=== PATIENT | female | born 1995 | race African-American/Black ===

== ENCOUNTER 2019-12-15 08:41 | Outpatient (REF) | payer BC, MEDICAID, SELFPAY ==
[2019-12-15 13:48] LABS: CT PCR NOT DETECTED (Not Detect.); NG PCR NOT DETECTED (Not Detect.)
[2019-12-21 18:17] LABS: HPV mRNA E6/E7 Not Detected (Not Detected)
== END 2019-12-15 08:42 | disposition home or self-care (01) ==
LOC: HO.LAB 08:41
PROVIDERS: PCP Internal Medicine; Referring Provider Internal Medicine; Visit Provider Obstetrics & Gynecology
DX: Z01.419 Encounter for gynecological examination (general) (routine) without abnormal findings (principal); R10.2 Pelvic and perineal pain
CPT/HCPCS: 81002; 81025; 87491; 87591; 87624; 88142

== ENCOUNTER → 2020-01-09 11:11 | Outpatient (BNVA) | payer MEDICAID, SELFPAY | PROVIDERS: Visit Provider Obstetrics & Gynecology | DX: Z76.89 Persons encountering health services in other specified circumstances (principal) ==

== ENCOUNTER 2020-01-25 16:11 | Outpatient (REF) | payer OTHER, SELFPAY ==
--- NOTE | 2020-01-25 16:18 | US_ITS ---
EXAMINATION: ULTRASOUND PELVIS. CLINICAL INFORMATION: Pelvic pain. COMPARISON: None TECHNIQUE: Transabdominal and transvaginal imaging of pelvis was performed. FINDINGS: The uterus is anteverted and anteflexed measuring 7.0 cm in length, 3.7 cm in AP and 4.1 cm in transverse dimension. The endometrial thickness is 0.7 cm. The uterus is homogeneous in echotexture. Small nabothian cysts seen in the cervix. The right ovary measures 3.0 x 2.5 x 2.5 cm and volume 9.8 mL. There are small follicles visualized. Previously right ovary measured 4.9 x 2.6 x 3.3 cm. Left ovary measures 2.6 x 2.1 x 2.5 cm and volume 9.9 mL. There is a small corpus luteal cyst measuring 1.5 x 1.5 x 1.6 cm. In addition there are small shotty follicles noted. There is no free fluid in cul-de-sac. US/US pelvic complete IMPRESSION: 1. Unremarkable uterus. 2. Small nabothian cysts seen in cervix. 3. Bilateral small ovarian follicles. 4. Corpus luteal cyst left ovary.
--- NOTE | 2020-01-25 16:18 | US_ITS ---
EXAMINATION: ULTRASOUND PELVIS. CLINICAL INFORMATION: Pelvic pain. COMPARISON: None TECHNIQUE: Transabdominal and transvaginal imaging of pelvis was performed. FINDINGS: The uterus is anteverted and anteflexed measuring 7.0 cm in length, 3.7 cm in AP and 4.1 cm in transverse dimension. The endometrial thickness is 0.7 cm. The uterus is homogeneous in echotexture. Small nabothian cysts seen in the cervix. The right ovary measures 3.0 x 2.5 x 2.5 cm and volume 9.8 mL. There are small follicles visualized. Previously right ovary measured 4.9 x 2.6 x 3.3 cm. Left ovary measures 2.6 x 2.1 x 2.5 cm and volume 9.9 mL. There is a small corpus luteal cyst measuring 1.5 x 1.5 x 1.6 cm. In addition there are small shotty follicles noted. There is no free fluid in cul-de-sac. US/US transvaginal IMPRESSION: 1. Unremarkable uterus. 2. Small nabothian cysts seen in cervix. 3. Bilateral small ovarian follicles. 4. Corpus luteal cyst left ovary.
== END 2020-01-25 16:12 | disposition home or self-care (01) ==
LOC: HO.US 16:11
PROVIDERS: PCP Internal Medicine; Visit Provider Obstetrics & Gynecology
DX: R10.2 Pelvic and perineal pain (principal)
CPT/HCPCS: 76830; 76856

== ENCOUNTER 2020-02-22 16:34 | Outpatient (REF) | payer OTHER, SELFPAY | END 2020-02-22 16:35 | disposition home or self-care (01) | LOC: HO.LAB 16:34 | PROVIDERS: Visit Provider Internal Medicine | DX: Z20.828 Contact with and (suspected) exposure to other viral communicable diseases (principal) | CPT/HCPCS: 36415; C9803; U0003 ==

== ENCOUNTER 2020-05-06 22:57 | Emergency (ER) | payer OTHER, SELFPAY ==
--- NOTE | ~2020-05-06 | XR_ITS ---
EXAMINATION: XR CHEST CLINICAL INFORMATION: Right-sided chest pressure. COMPARISON: Most recent chest radiograph dated 09/09/2017. TECHNIQUE: Frontal view of the chest was obtained. FINDINGS: The lungs are clear. The cardiomediastinal silhouette is normal in size. There is no pleural effusion or pneumothorax. No acute osseous abnormality. XR/XR chest 1V IMPRESSION: No acute cardiopulmonary findings.
[2020-05-06 23:36] VITALS: BP 113/67; PULSE 80; RESP 16; TEMP 36.8; O2SAT 98; BMI 24.0
--- NOTE | 2020-05-06 23:50 | PC.NURSE ---
UA obtained and sent. MD at bedside for primary eval.
--- NOTE | 2020-05-06 23:52 | ECG_ITS ---
Test Reason : CP Blood Pressure : / mmHG Vent. Rate : 058 BPM Atrial Rate : 058 BPM P-R Int : 132 ms QRS Dur : 086 ms QT Int : 394 ms P-R-T Axes : 042 061 050 degrees QTc Int : 386 ms Sinus bradycardia Otherwise normal ECG When compared with ECG of 09-SEP-2017 18:07, No significant change was found Referred By: Sally Fu Electronically Signed By:KEELY DE PAZ
--- NOTE | 2020-05-06 23:55 | ED_ITS ---
HPI - General Adult General Chief complaint: Abdominal Pain Stated complaint: ABD PAIN Time Seen by Provider: 05/06/20 23:22 Source: patient Mode of arrival: ambulatory Limitations: no limitations History of Present Illness HPI narrative: Patient comes emergency room complaining of suprapubic cramping and chest pressure. Patient states the chest pressure occurred at work for a few seconds on the right side and then resolved, no chest pressure at this time. Patient states that made her come to the emergency room specifically was because of the suprapubic cramping. Patient states she is due for her menstrual period. Patient states that this time she has brownish discharge. She does not suspect to be . Patient denies fever or chills, denies vomiting or diarrhea Related Data Home Medications Medication Instructions Recorded Confirmed desogestrel-e.estradiol 0.15 1 tab PO DAILY 12/15/19 12/15/19 mg-0.02 mg(21)/e.estrad 0.01 mg(5) tablet Previous Rx's Medication Instructions Recorded polyethylene glycol 3350 [Miralax] 17 g PO DAILY #14 ea 05/07/20 Allergies Allergy/AdvReac Type Severity Reaction Status Date / Time No Known Allergies Allergy Verified 12/15/19 08:51 Review of Systems Review of Systems: Constitutional : No Weight loss, No Fever, No Chills, No Night Sweats, No Fatigue, No Malaise ENT/Mouth : No Hearing loss, No Ear Pain, No Nasal Congestion, No Sinus Pain, No Hoarseness, No sore throat, No Rhinorrhea, No Swallowing Difficulty Eyes: No Eye Pain, No Swelling, No Redness, No Foreign Body, No Discharge, No Vision Changes Cardiovascular : Few seconds chest pressure on the right side which self- resolved, denies diaphoresis, No SOB, No Dyspnea on Exertion, No Orthopnea, No Edema, No Palpitations Respiratory : No Cough, No Sputum, No Wheezing, No Smoke Exposure, No Dyspnea Gastrointestinal : No Nausea, No Vomiting, No Diarrhea, No Constipation, complaining of suprapubic cramping, No Hematochezia, No Melena Genitourinary : Brown discharge, due for her menstrual period, No Dysuria, No Urinary Frequency, No Hematuria, No Urinary Incontinence, No Urgency, No Flank Pain, No Urinary Flow Changes, No Hesitancy Musculoskeletal : No joint pain, No Myalgias, No Joint Swelling Skin : No Skin Lesions, No rash Neuro : No Weakness, No Numbness, No Paresthesias, No Loss of Consciousness, No Dizziness, No Headache Psych : No Anxiety/Panic, No Depression, No SI/HI/AH/VH, No Social Issues, Heme/Lymph: No Bruising, No Bleeding,No Lymphadenopathy Endocrine : No Polyuria, No Polydipsia, No Temperature Intolerance [facility] Past Medical History Medical History ASCUS with positive high risk HPV cervical PRETTY I (cervical intraepithelial neoplasia I) Surgical History History of surgery on arm Family History Family History Father High cholesterol Hypertension Mother Alive and well Maternal Grandmother Cancer Sister Cancer Social History Social History Alcohol intake: current Alcohol intake frequency: holidays/special occasions only Smoking Status: Never smoker Advance Directives: No Sexual orientation: Straight/Heterosexual Gender identity: female Physical Exam Vital Signs: Vital Signs: Last Vital Signs Temp 98.4 F 05/07/20 01:13 Pulse 57 05/07/20 01:13 Resp 16 05/07/20 01:13 BP 134/84 05/07/20 01:13 Pulse Ox 99 05/07/20 01:13 Body Mass Index 24.0 Appearance: Alert. Oriented X3. No acute distress. Eyes: Pupils equal, round and reactive to light. ENT: Pharynx normal. Neck: Normal inspection. Neck supple. No lymph nodes noted. No crepitus CVS: Normal heart rate and rhythm. Pulses normal. Normal S1 and S2 Respiratory: No respiratory distress. Breath sounds normal. No Wheezing. No rales Abdomen: Soft and nontender. No rigidity. No distention. Negative Fisher signs, no pain at McBurney's point, no left lower quadrant pain on deep palpation Skin: Skin warm and dry. Normal skin color. Normal skin turgor. Extremities: No lower extremity edema bilaterally, no calf or leg tenderness sharri aterally, No Rash Neuro: Oriented X 3. No motor deficit. No sensory deficit. Moving all extermities. No slurred speech. Course Course Course Narrative: I discussed the labs with the patient, patient's EKG within normal limits, urinalysis shows +3 blood, however patient is menstruating. No UTI. Chest x-ray within normal limits. Patient requesting medication to have a bowel movement. Patient states she had a bowel movement at 07:00 today, but was less than usual. Patient requesting medication for menstrual cramps Heart score of 0, wells criteria for PE score of 0 UA positive for marijuana Medical Decision Making Lab Data Result diagrams: 05/07/20 00:15 05/07/20 00:15 Labs: Lab Results 05/06/20 05/06/20 05/06/20 Range/Units 23:49 23:49 23:49 WBC (4.8-10.8) X10*3/uL RBC (4.20-5.50) X10*6/uL Hgb (12.0-16.0) g/dl Hct (37-47) % MCV (80-98) fL MCH (27.0-33.0) pg MCHC (31.0-35.0) g/dl RDW (11.0-16.0) % Plt Count (160-400) X10*3/uL MPV (9.4-12.3) fL Immature Gran % (Auto) (0.0-0.4) % Neut % (Auto) (45-73) % Lymph % (Auto) (20-40) % [place] % (Auto) (2-11) % Eos % (Auto) (0-4) % Baso % (Auto) (0-2) % Lymph # (Auto) (1.2-4.9) X10*3/uL [place] # (Auto) (0.1-1.2) X10*3/uL Eos # (Auto) (0.0-0.4) X10*3/uL Baso # (Auto) (0.0-0.2) X10*3/uL Abs Immat Gran (auto) (0.00-0.03) X10*3/uL Absolute Neuts (auto) (2.0-8.3) X10*3/uL Absolute Nucleated RBC (0.0-0.012) X10*3/uL Nucleated RBC % (auto) (0.0-0.2) /100WBC Sodium (135-145) mmol/L Potassium (3.3-5.1) mmol/L Chloride (96-108) mmol/L Carbon Dioxide (22-29) mmol/L Anion Gap (12-20) BUN (9-16) mg/dL Creatinine (0.5-1.4) mg/dL Estim Creat Clear Calc Estimated GFR Random Glucose (60-115) mg/dL Calcium (8.4-10.2) mg/dL Total Bilirubin (0.0-1.0) mg/dL Direct Bilirubin (0.0-0.5) mg/dL AST (5-31) U/L ALT (0-31) U/L Alkaline Phosphatase (39-117) U/L Troponin I High Sens (<3.5-17.0) ng/L Total Protein (6.5-8.0) g/dL Albumin (3.5-5.0) g/dL Lipase (8-78) U/L Urine Color DARK YELLOW Urine Appearance HAZY Urine pH 6.0 (5.0-8.0) Ur Specific [place] >= 1.030 H (1.005-1.025) Urine Protein TRACE (NEG-TRACE) MG/DL Urine Glucose (UA) NEG (NEG) MG/DL Urine Ketones 5 (NEG) MG/DL Urine Blood 3+ H (NEG) Urine Nitrite NEG (NEG) Ur Leukocyte Esterase NEG (NEG) Urine RBC 15-29 H (0) /HPF Urine WBC 1-4 (0-4) /HPF Ur Squamous Epith Cells 3+ /LPF Urine Bacteria TRACE /LPF Urine Mucus 3+ /LPF Urine Test NEGATIVE (NEGATIVE) Urine Opiates Screen Not Detected (Not Detect) Ur Barbiturates Screen Not Detected (Not Detect) Ur Phencyclidine Scrn Not Detected (Not Detect) Ur Amphetamines Screen Not Detected (Not Detect) U Benzodiazepines Scrn Not Detected (Not Detect) Urine Cocaine Screen Not Detected (Not Detect) U Marijuana (THC) Screen POSITIVE H (Not Detect) 05/07/20 05/07/20 05/07/20 Range/Units 00:15 00:15 00:15 WBC 7.1 (4.8-10.8) X10*3/uL RBC 4.12 L (4.20-5.50) X10*6/uL Hgb 13.1 (12.0-16.0) g/dl Hct 37.7 (37-47) % MCV 91.5 (80-98) fL MCH 31.8 (27.0-33.0) pg MCHC 34.7 (31.0-35.0) g/dl RDW 12.5 (11.0-16.0) % Plt Count 227 (160-400) X10*3/uL MPV 10.2 (9.4-12.3) fL Immature Gran % (Auto) 0.1 (0.0-0.4) % Neut % (Auto) 58.1 (45-73) % Lymph % (Auto) 32.4 (20-40) % [place] % (Auto) 6.5 (2-11) % Eos % (Auto) 2.1 (0-4) % Baso % (Auto) 0.8 (0-2) % Lymph # (Auto) 2.3 (1.2-4.9) X10*3/uL [place] # (Auto) 0.5 (0.1-1.2) X10*3/uL Eos # (Auto) 0.2 (0.0-0.4) X10*3/uL Baso # (Auto) 0.1 (0.0-0.2) X10*3/uL Abs Immat Gran (auto) 0.01 (0.00-0.03) X10*3/uL Absolute Neuts (auto) 4.1 (2.0-8.3) X10*3/uL Absolute Nucleated RBC 0.000 (0.0-0.012) X10*3/uL Nucleated RBC % (auto) 0.0 (0.0-0.2) /100WBC Sodium 141 (135-145) mmol/L Potassium 3.5 (3.3-5.1) mmol/L Chloride 105 (96-108) mmol/L Carbon Dioxide 26 (22-29) mmol/L Anion Gap 14 (12-20) BUN 12 (9-16) mg/dL Creatinine 0.92 (0.5-1.4) mg/dL Estim Creat Clear Calc 102.6 Estimated GFR > 60 Random Glucose 87 (60-115) mg/dL Calcium 9.2 (8.4-10.2) mg/dL Total Bilirubin 0.3 (0.0-1.0) mg/dL Direct Bilirubin 0.2 (0.0-0.5) mg/dL AST 14 (5-31) U/L ALT 10 (0-31) U/L Alkaline Phosphatase 55 (39-117) U/L Troponin I High Sens < 3.5 (<3.5-17.0) ng/L Total Protein 6.8 (6.5-8.0) g/dL Albumin 3.7 (3.5-5.0) g/dL Lipase 29 (8-78) U/L Urine Color Urine Appearance Urine pH (5.0-8.0) Ur Specific [place] (1.005-1.025) Urine Protein (NEG-TRACE) MG/DL Urine Glucose (UA) (NEG) MG/DL Urine Ketones (NEG) MG/DL Urine Blood (NEG) Urine Nitrite (NEG) Ur Leukocyte Esterase (NEG) Urine RBC (0) /HPF Urine WBC (0-4) /HPF Ur Squamous Epith Cells /LPF Urine Bacteria /LPF Urine Mucus /LPF Urine Test (NEGATIVE) Urine Opiates Screen (Not Detect) Ur Barbiturates Screen (Not Detect) Ur Phencyclidine Scrn (Not Detect) Ur Amphetamines Screen (Not Detect) U Benzodiazepines Scrn (Not Detect) Urine Cocaine Screen (Not Detect) U Marijuana (THC) Screen (Not Detect) Imaging Data Chest x-ray: Radiologist's impression: The lungs are clear. The cardiomediastinal silhouette is normal in size. There is no pleural effusion or pneumothorax. No acute osseous abnormality. XR/XR chest 1V IMPRESSION: No acute cardiopulmonary findings. ECG Data Attestation: I personally reviewed and interpreted this ECG as follows: (Sinus bradycardia, heart rate 58, no ST segment depression or elevation, no T-wave inversion) Scores Heart Score History: -0- slightly suspicious ECG: -0- normal Age: -0- < or = 45 Risk factory: -0- no risk factors known Troponin: -0- < or = normal limit Score: 0 Risk: 1.7% Discharge Plan Discharge Clinical Impression: Atypical chest pain, Abdominal cramping Patient Disposition: Home, Self-Care Instructions: Chest Pain (ED), Abdominal Pain (ED) Additional Instructions: Please follow-up with your primary care physician tomorrow. If you have any wor sening or new symptoms, please return to the emergency room or call 911 Prescriptions: New polyethylene glycol 3350 [Miralax] 17 gram powder in packet 17 g PO DAILY Qty: 14 RF: 0 No Action desog-e.estradiol/e.estradiol 0.15-0.02 mgx21 /0.01 mg x 5 tablet 1 tab PO DAILY RF: 0
[2020-05-06 23:57] LABS: Glucose Urine UA NEG (NEG); Leukocyte Esterase Urine NEG (NEG); Nitrite Urine NEG (NEG); Specific Gravity - Urine >= 1.030 (1.005-1.025); Urine Blood 3+ (NEG); Urine Ketones 5 MG/DL (NEG); Urine Protein TRACE MG/DL (NEG-TRACE)
[2020-05-06 23:59] LABS: Appearance Urine HAZY; Color Urine DARK YELLOW; UPreg QC Valid YES; Urine Pregnancy NEGATIVE (NEGATIVE)
[2020-05-07 00:11] LABS: Bacteria Urine TRACE /LPF; Mucus Urine 3+ /LPF; Squamous Epithelial Cell Urine 3+ /LPF
[2020-05-07 00:22] LABS: MANUAL DIFF FLAG NO
[2020-05-07 00:26] LABS: Basophils Absolute Auto 0.1 X10*3/uL (0.0-0.2); Basophils Percent Auto 0.8 % (0-2); Eosinophils Absolute Auto 0.2 X10*3/uL (0.0-0.4); Eosinophils Percent Auto 2.1 % (0-4); Hematocrit 37.7 % (37-47); Hemoglobin 13.1 g/dl (12.0-16.0); Imm Gran Abs Auto 0.01 X10*3/uL (0.00-0.03); Imm Gran Pct Auto 0.1 % (0.0-0.4); Lymphocytes Absolute Auto 2.3 X10*3/uL (1.2-4.9); Lymphocytes Percent Auto 32.4 % (20-40); Mean Corpuscular HGB Conc 34.7 g/dl (31.0-35.0); Mean Corpuscular Hemoglobin 31.8 pg (27.0-33.0); Mean Corpuscular Volume 91.5 fL (80-98); Mean Platelet Volume 10.2 fL (9.4-12.3); Monocytes Absolute Auto 0.5 X10*3/uL (0.1-1.2); Monocytes Percent Auto 6.5 % (2-11); Neutrophils Absolute Auto 4.1 X10*3/uL (2.0-8.3); Neutrophils Percent Auto 58.1 % (45-73); Platelet Count 227 X10*3/uL (160-400); Red Blood Count 4.12 X10*6/uL (4.20-5.50); Red Cell Distribution Width 12.5 % (11.0-16.0); White Blood Count 7.1 X10*3/uL (4.8-10.8)
--- NOTE | 2020-05-07 00:26 | PC.NURSE ---
This RN calling lab to add on OLIVERA. Labs and EKG obtained by [employer].
[2020-05-07 00:48] LABS: Troponin-I High Sensitivity < 3.5 ng/L (<3.5-17.0)
[2020-05-07 00:53] LABS: Alanine Aminotransferase 10 U/L (0-31); Albumin Level 3.7 g/dL (3.5-5.0); Alkaline Phosphatase 55 U/L (39-117); Aspartate Amino Transferase 14 U/L (5-31); Bilirubin Direct 0.2 mg/dL (0.0-0.5); Bilirubin Total 0.3 mg/dL (0.0-1.0); Lipase 29 U/L (8-78); Total Protein 6.8 g/dL (6.5-8.0)
[2020-05-07 00:54] LABS: Amphetamine Screen Urine Not Detected (Not Detect); Barbiturates, Urine Not Detected (Not Detect); Benzodiazepines Screen Urine Not Detected (Not Detect); Cannabinoid Screen Urine POSITIVE (Not Detect); Cocaine Screen Urine Not Detected (Not Detect); Opiate Screen Urine Not Detected (Not Detect); Phencyclidine Screen Urine Not Detected (Not Detect)
[2020-05-07 01:03] LABS: Anion Gap 14 (12-20); Blood Urea Nitrogen 12 mg/dL (9-16); Calcium 9.2 mg/dL (8.4-10.2); Carbon Dioxide 26 mmol/L (22-29); Chloride 105 mmol/L (96-108); Creatinine Clr Calc Pharmacy 102.6; Estimated Glomerular Filt Rate > 60; Glucose Random 87 mg/dL (60-115); Potassium 3.5 mmol/L (3.3-5.1); Sodium 141 mmol/L (135-145)
[2020-05-07 01:13] VITALS: BP 134/84; PULSE 57; RESP 16; TEMP 36.9; O2SAT 99
--- NOTE | 2020-05-07 01:32 | PC.NURSE ---
MD at bedside explaining test results, plan for IM Toradol and DC home.
[2020-05-07] MEDS: Ketorolac Tromethamine 60 MG/2 ML VIAL IM (01:39)
--- NOTE | 2020-05-07 01:39 | PC.NURSE ---
Pt medicated with Toradol per APR. VSS. Awaiting DC paperwork.
== END 2020-05-07 01:59 | disposition home or self-care (01) ==
PROVIDERS: Emergency Provider Emergency Medicine; PCP Internal Medicine
DX: R07.89 Other chest pain (principal); R10.30 Lower abdominal pain, unspecified; Z79.899 Other long term (current) drug therapy
CPT/HCPCS: 36415; 71045; 80048; 80076; 80307; 81001; 81025; 83690; 84484; 85025; 93005; 96372; 99283; 99284; J1885

== ENCOUNTER 2020-08-21 11:18 | Emergency (ER) | payer OTHER, SELFPAY ==
[2020-08-21 11:33] VITALS: BP 125/84; PULSE 75; RESP 18; TEMP 36.6; O2SAT 100; BMI 23.7
--- NOTE | 2020-08-21 12:15 | ED.ABDPAIN ---
HPI - Abdominal Pain General Chief Complaint: Abdominal Pain Stated Complaint: abd pain Time Seen by Provider: 08/21/20 12:13 Source: patient Mode of arrival: ambulatory Limitations: no limitations History of Present Illness HPI narrative: 25-year-old female came in for evaluation of suprapubic abdominal pain. Pain started since 2 days ago, localized to the suprapubic area with no radiation, pain described as constant for 2 days mild 4/10, pain is not associated with nausea, vomiting, or diarrhea. Patient also declined any urinary dysuria or frequency. No fever, no chills. Patient is sexually active with 1 partner noticed no vaginal discharge or bleeding, no risk for STD. Related Data Home Medications Medication Instructions Recorded Confirmed desogestrel-e.estradiol 0.15 1 tab PO DAILY 12/15/19 12/15/19 mg-0.02 mg(21)/e.estrad 0.01 mg(5) tablet Previous Rx's Medication Instructions Recorded polyethylene glycol 3350 [Miralax] 17 g PO DAILY #14 ea 05/07/20 Allergies Allergy/AdvReac Type Severity Reaction Status Date / Time No Known Allergies Allergy Verified 12/15/19 08:51 Review of Systems Review of Systems All other systems are reviewed and are negative Constitutional: Reports as per HPI and Reports no additional constitutional complaints Eyes: Reports as per HPI and Reports no additional eye complaints Reports system reviewed and no additional complaints, except as documented Cardiovascular: Reports as per HPI and Reports no additional cardiovascular complaints Respiratory: Reports as per HPI and Reports no additional respiratory complaints Gastrointestinal: Reports as per HPI and Reports no additional gastrointestinal complaints Genitourinary: Reports no additional female genitourinary complaints Musculoskeletal: Reports no additional musculoskeletal complaints Skin/Breast: Reports system reviewed and no additional complaints, except as docu Psychiatric: Reports no additional psychiatric complaints Endocrine: Reports no additional endocrine complaints Hematologic/Lymphatic: Reports no additional hematologic/lymphatic complaints Allergic/Immunologic: Reports no additional allergic/immunologic complaints Reports system reviewed and no additional complaints, except as documented and Reports Abnormal speech present Physical Exam Vital Signs: Vital Signs: Last Vital Signs Temp 98 F 08/21/20 11:33 Pulse 75 08/21/20 11:33 Resp 18 08/21/20 11:33 BP 125/84 08/21/20 11:33 Pulse Ox 100 08/21/20 11:33 Body Mass Index 23.7 vital signs have been reviewed as appeared to be correct. Blood pressure normal. Heart rate normal. Respiration rate normal. Temperature normal. Oxygen saturation normal. Appearance: Alert. Oriented X3. No acute distress. Head: Normal external exam. Normocephalic. Atraumatic. No Hoffman signs noted. No raccoon eyes noted Eyes: PERRLA. EOMI. Conjunctiva and sclera normal. Eyelids normal. ENT: TM's Normal. Pharynx normal. Uvula midline. Moist mucous membranes. No trismus noted. No drooling noted. No muffled voice noted. Neck: Normal inspection. Neck supple. FROM. No adenopathy. Thyroid Normal. No meningeal signs. No neck mass noted. CVS: Normal heart rate and rhythm. Heart sound normal. No murmurs noted. Pulses normal throughout. Respiratory: No respiratory distress. Painless inspiration. Breath sounds normal. No wheezes/rales/rhonchi noted. Chest nontender. No accessory muscle usage noted or decreased air movement noted. Abdomen: Soft and nontender, No guarding, no rebound tenderness. Bowel sounds normal in all 4 quadrants. No distention noted. No organomegaly noted. No visible injury noted. Back: No CVA tenderness. Full range of motion noted. Skin: Skin warm and dry. Normal skin color. Normal skin turgor. No rashes/lesions/lacerations noted. Extremities: No lower extremity edema. Extremities exhibit normal range of motion. Extremities nontender. Neuro: Oriented X 3. No motor deficit. No sensory deficit. Reflexes normal. Course Course Course Narrative: assessment and plan. 25-year-old female came in with suprapubic pain, physical exam labs /UA are unremarkable. potassium value is elevated likely to be hemolyzed given the patient, past medical history and renal function test within normal, I explained to the patient the importance of repeating potassium today and make sure it is not a lab error, patient is insisting to leave the ED without repeating potassium patient was instructed to follow up with PCP and repeat the potassium at some point. High potassium side effects were discussed with the patient including cardiac dysrhythmia and . MDM - Abdominal Pain Lab Data Attestation: I reviewed the patient's lab results. Result diagrams: 08/21/20 12:37 08/21/20 12:37 Labs: Lab Results 0708/21/20 08/21/20 Range/Units 12:25 12:25 12:37 WBC 5.4 (4.8-10.8) X10*3/uL RBC 4.69 (4.20-5.50) X10*6/uL Hgb 14.6 (12.0-16.0) g/dl Hct 43.4 (37-47) % MCV 92.5 (80-98) fL MCH 31.1 (27.0-33.0) pg MCHC 33.6 (31.0-35.0) g/dl RDW 12.5 (11.0-16.0) % Plt Count 256 (160-400) X10*3/uL MPV 10.0 (9.4-12.3) fL Immature Gran % (Auto) 0.2 (0.0-0.4) % Neut % (Auto) 60.8 (45-73) % Lymph % (Auto) 27.7 (20-40) % [place] % (Auto) 8.9 (2-11) % Eos % (Auto) 1.5 (0-4) % Baso % (Auto) 0.9 (0-2) % Lymph # (Auto) 1.5 (1.2-4.9) X10*3/uL [place] # (Auto) 0.5 (0.1-1.2) X10*3/uL Eos # (Auto) 0.1 (0.0-0.4) X10*3/uL Baso # (Auto) 0.1 (0.0-0.2) X10*3/uL Abs Immat Gran (auto) 0.01 (0.00-0.03) X10*3/uL Absolute Neuts (auto) 3.3 (2.0-8.3) X10*3/uL Absolute Nucleated RBC 0.000 (0.0-0.012) X10*3/uL Nucleated RBC % (auto) 0.0 (0.0-0.2) /100WBC Sodium (135-145) mmol/L Potassium (3.3-5.1) mmol/L Chloride (96-108) mmol/L Carbon Dioxide (22-29) mmol/L Anion Gap (12-20) BUN (9-16) mg/dL Creatinine (0.5-1.4) mg/dL Estim Creat Clear Calc Estimated GFR Random Glucose (60-115) mg/dL Calcium (8.4-10.2) mg/dL Total Bilirubin (0.0-1.0) mg/dL Direct Bilirubin (0.0-0.5) mg/dL AST (5-31) U/L ALT (0-31) U/L Alkaline Phosphatase (39-117) U/L Total Protein (6.5-8.0) g/dL Albumin (3.5-5.0) g/dL Lipase (8-78) U/L Urine Color YELLOW Urine Appearance CLEAR Urine pH 6.5 (5.0-8.0) Ur Specific [place] <= 1.005 (1.005-1.025) Urine Protein NEG (NEG-TRACE) MG/DL Urine Glucose (UA) NEG (NEG) MG/DL Urine Ketones NEG (NEG) MG/DL Urine Blood NEG (NEG) Urine Nitrite NEG (NEG) Ur Leukocyte Esterase NEG (NEG) Urine Test NEGATIVE (NEGATIVE) 08/21/20 Range/Units 12:37 WBC (4.8-10.8) X10*3/uL RBC (4.20-5.50) X10*6/uL Hgb (12.0-16.0) g/dl Hct (37-47) % MCV (80-98) fL MCH (27.0-33.0) pg MCHC (31.0-35.0) g/dl RDW (11.0-16.0) % Plt Count (160-400) X10*3/uL MPV (9.4-12.3) fL Immature Gran % (Auto) (0.0-0.4) % Neut % (Auto) (45-73) % Lymph % (Auto) (20-40) % [place] % (Auto) (2-11) % Eos % (Auto) (0-4) % Baso % (Auto) (0-2) % Lymph # (Auto) (1.2-4.9) X10*3/uL [place] # (Auto) (0.1-1.2) X10*3/uL Eos # (Auto) (0.0-0.4) X10*3/uL Baso # (Auto) (0.0-0.2) X10*3/uL Abs Immat Gran (auto) (0.00-0.03) X10*3/uL Absolute Neuts (auto) (2.0-8.3) X10*3/uL Absolute Nucleated RBC (0.0-0.012) X10*3/uL Nucleated RBC % (auto) (0.0-0.2) /100WBC Sodium 138 (135-145) mmol/L Potassium 5.8 H D (3.3-5.1) mmol/L Chloride 104 (96-108) mmol/L Carbon Dioxide 28 (22-29) mmol/L Anion Gap 12 (12-20) BUN 9 (9-16) mg/dL Creatinine 0.91 (0.5-1.4) mg/dL Estim Creat Clear Calc 103.8 Estimated GFR > 60 Random Glucose 83 (60-115) mg/dL Calcium 9.6 (8.4-10.2) mg/dL Total Bilirubin 0.5 (0.0-1.0) mg/dL Direct Bilirubin 0.2 (0.0-0.5) mg/dL AST 18 (5-31) U/L ALT 13 (0-31) U/L Alkaline Phosphatase 57 (39-117) U/L Total Protein 8.0 (6.5-8.0) g/dL Albumin 4.4 (3.5-5.0) g/dL Lipase 24 (8-78) U/L Urine Color Urine Appearance Urine pH (5.0-8.0) Ur Specific [place] (1.005-1.025) Urine Protein (NEG-TRACE) MG/DL Urine Glucose (UA) (NEG) MG/DL Urine Ketones (NEG) MG/DL Urine Blood (NEG) Urine Nitrite (NEG) Ur Leukocyte Esterase (NEG) Urine Test (NEGATIVE) Discharge Plan Discharge Clinical Impression: Hyperkalemia Abdominal pain Qualifiers: Abdominal location: lower abdomen, unspecified Qualified Code(s): R10.30 - Lower abdominal pain, unspecified Patient Disposition: Home, Self-Care Instructions: Abdominal Pain (ED), Hyperkalemia (ED) Prescriptions: No Action polyethylene glycol 3350 [Miralax] 17 gram powder in packet 17 g PO DAILY Qty: 14 RF: 0 desog-e.estradiol/e.estradiol 0.15-0.02 mgx21 /0.01 mg x 5 tablet 1 tab PO DAILY RF: 0 Referrals: Shanice Hallman MD [Primary Care Provider] - 2 days [facility] Past Medical History Medical History ASCUS with positive high risk HPV cervical PRETTY I (cervical intraepithelial neoplasia I) Surgical History History of surgery on arm Family History Family History Father High cholesterol Hypertension Mother Alive and well Maternal Grandmother Cancer Sister Cancer Social History Social History Alcohol intake: current Alcohol intake frequency: holidays/special occasions only Advance Directives: No Advance Directives Information Provided: No Sexual orientation: Straight/Heterosexual Gender identity: female
[2020-08-21 12:42] LABS: Glucose Urine UA NEG (NEG); Leukocyte Esterase Urine NEG (NEG); Nitrite Urine NEG (NEG); PH 6.5 (5.0-8.0); Specific Gravity - Urine <= 1.005 (1.005-1.025); Urine Blood NEG (NEG); Urine Ketones NEG (NEG); Urine Protein NEG (NEG-TRACE)
[2020-08-21 12:42] LABS: MANUAL DIFF FLAG NO
[2020-08-21 12:44] LABS: Appearance Urine CLEAR; Color Urine YELLOW
[2020-08-21 12:45] LABS: UPreg QC Valid YES; Urine Pregnancy NEGATIVE (NEGATIVE)
[2020-08-21 12:51] LABS: Basophils Absolute Auto 0.1 X10*3/uL (0.0-0.2); Basophils Percent Auto 0.9 % (0-2); Eosinophils Absolute Auto 0.1 X10*3/uL (0.0-0.4); Eosinophils Percent Auto 1.5 % (0-4); Hematocrit 43.4 % (37-47); Hemoglobin 14.6 g/dl (12.0-16.0); Imm Gran Abs Auto 0.01 X10*3/uL (0.00-0.03); Imm Gran Pct Auto 0.2 % (0.0-0.4); Lymphocytes Absolute Auto 1.5 X10*3/uL (1.2-4.9); Lymphocytes Percent Auto 27.7 % (20-40); Mean Corpuscular HGB Conc 33.6 g/dl (31.0-35.0); Mean Corpuscular Hemoglobin 31.1 pg (27.0-33.0); Mean Corpuscular Volume 92.5 fL (80-98); Monocytes Absolute Auto 0.5 X10*3/uL (0.1-1.2); Monocytes Percent Auto 8.9 % (2-11); Neutrophils Absolute Auto 3.3 X10*3/uL (2.0-8.3); Neutrophils Percent Auto 60.8 % (45-73); Platelet Count 256 X10*3/uL (160-400); Red Blood Count 4.69 X10*6/uL (4.20-5.50); Red Cell Distribution Width 12.5 % (11.0-16.0); White Blood Count 5.4 X10*3/uL (4.8-10.8)
[2020-08-21 13:10] LABS: Alanine Aminotransferase 13 U/L (0-31); Albumin Level 4.4 g/dL (3.5-5.0); Alkaline Phosphatase 57 U/L (39-117); Anion Gap 12 (12-20); Aspartate Amino Transferase 18 U/L (5-31); Bilirubin Direct 0.2 mg/dL (0.0-0.5); Bilirubin Total 0.5 mg/dL (0.0-1.0); Blood Urea Nitrogen 9 mg/dL (9-16); Calcium 9.6 mg/dL (8.4-10.2); Carbon Dioxide 28 mmol/L (22-29); Chloride 104 mmol/L (96-108); Creatinine Clr Calc Pharmacy 103.8; Estimated Glomerular Filt Rate > 60; Glucose Random 83 mg/dL (60-115); Lipase 24 U/L (8-78); Potassium 5.8 mmol/L (3.3-5.1); Sodium 138 mmol/L (135-145)
== END 2020-08-21 14:44 | disposition home or self-care (01) ==
PROVIDERS: Emergency Provider Emergency Medicine; PCP Internal Medicine
DX: R10.30 Lower abdominal pain, unspecified (principal); E87.5 Hyperkalemia
CPT/HCPCS: 36415; 80048; 80076; 81003; 81025; 83690; 85025; 99283

== ENCOUNTER → 2020-11-14 14:26 | Outpatient (BNVA) | payer OTHER, SELFPAY | PROVIDERS: PCP Internal Medicine; Visit Provider Advanced Practice Midwife | DX: R10.2 Pelvic and perineal pain (principal) | CPT/HCPCS: 99212 ==

== ENCOUNTER → 2021-02-06 09:20 | Outpatient (BNVA) | payer OTHER, SELFPAY | PROVIDERS: PCP Internal Medicine; Visit Provider Obstetrics & Gynecology | DX: Z01.419 Encounter for gynecological examination (general) (routine) without abnormal findings (principal) | CPT/HCPCS: 81025 ==

== ENCOUNTER 2021-11-13 11:13 | Outpatient (REF) | payer OTHER, MEDICAID, SELFPAY ==
[2021-11-13 11:59] LABS: Hematocrit 41.4 % (37.0-47.0); Hemoglobin 14.1 g/dl (12.0-16.0); Mean Corpuscular HGB Conc 34.1 g/dl (31.0-35.0); Mean Corpuscular Hemoglobin 30.9 pg (27.0-33.0); Mean Corpuscular Volume 90.6 fL (80.0-98.0); Mean Platelet Volume 10.2 fL (9.4-12.3); Platelet Count 294 X10*3/uL (160-400); Red Blood Count 4.57 X10*6/uL (4.20-5.50); Red Cell Distribution Width 12.3 % (11.0-16.0)
[2021-11-13 12:42] LABS: HCG Quantitative < 2 mIU/mL; TSH reflex Free T4 1.92 uIU/mL (0.32-4.0)
[2021-11-13 16:02] LABS: CT PCR NOT DETECTED (Not Detect.); NG PCR NOT DETECTED (Not Detect.)
== END 2021-11-13 11:14 | disposition home or self-care (01) ==
LOC: HO.LAB 11:13
PROVIDERS: PCP Internal Medicine; Visit Provider Obstetrics & Gynecology
DX: N93.9 Abnormal uterine and vaginal bleeding, unspecified (principal)
CPT/HCPCS: 84443; 84702; 85027; 87491; 87591

== ENCOUNTER 2021-12-13 10:43 | Outpatient (REF) | payer OTHER, MEDICAID, SELFPAY ==
--- NOTE | ~2021-12-13 | US_ITS ---
EXAMINATION: US PELVIS CLINICAL INFORMATION: Abnormal uterine/vaginal bleeding. LMP at the beginning of November, patient is unsure of exact dates. COMPARISON: 01/25/2020. TECHNIQUE: Ultrasound of the pelvis is performed using both transabdominal and transvaginal transducers along with Doppler. Transvaginal imaging is performed due to inadequate visualization transabdominally. FINDINGS: The uterus is anteverted and anteflexed measuring 8.9 x 4.1 x 5.7 cm. No fibroids are noted. The endometrium measures 1 cm in thickness without discrete focal abnormality. Nabothian cysts are noted in the cervix. The right ovary measures 3.5 x 3 x 3 cm (16.5 mL) disease. The left ovary measures 3.6 x 2.4 x 3.2 cm (14.5 mL). There is preserved flow to both ovaries at the moment of this examination. There is a 2.1 x 1.8 x 2.1 cm lesion in the left ovary with thickened conteh and peripheral hyperemia left favored to represent a corpus luteal cyst. No free fluid. US/US pelvic and transvaginal IMPRESSION: 1. No evidence of ovarian torsion at the moment of this examination. 2. There is a 2.1 cm lesion in the left ovary with thickened conteh and peripheral hyperemia, favored to represent a corpus luteal cyst. Recommend follow-up ultrasound in 6-12 weeks to ensure resolution.
== END 2021-12-13 10:44 | disposition home or self-care (01) ==
LOC: HO.US 10:43
PROVIDERS: Visit Provider Obstetrics & Gynecology
DX: N93.9 Abnormal uterine and vaginal bleeding, unspecified (principal)
CPT/HCPCS: 76830; 76856

== ENCOUNTER 2022-04-23 11:36 | Outpatient (REF) | payer OTHER, MEDICAID, SELFPAY ==
[2022-04-23 15:50] LABS: CT PCR NOT DETECTED (Not Detect.); NG PCR NOT DETECTED (Not Detect.)
== END 2022-04-23 11:37 | disposition home or self-care (01) ==
LOC: HO.LNP 11:36
PROVIDERS: Visit Provider Obstetrics & Gynecology
DX: Z01.419 Encounter for gynecological examination (general) (routine) without abnormal findings (principal); N93.9 Abnormal uterine and vaginal bleeding, unspecified
CPT/HCPCS: 0353U; 88142

== ENCOUNTER 2022-04-23 11:59 | Outpatient (REF) | payer OTHER, MEDICAID, SELFPAY ==
--- NOTE | ~2022-04-23 | US_ITS ---
EXAMINATION: US PELVIS CLINICAL INFORMATION: Ovarian cyst. COMPARISON: None. TECHNIQUE: Ultrasound of the pelvis is performed using both transabdominal and transvaginal transducers along with Doppler. Transvaginal imaging is performed due to inadequate visualization transabdominally. FINDINGS: Uterus: The uterus is anteverted and measures 7.5 x 3.7 x 5.0 cm. The double wall endometrial thickness is 1.2 cm. The uterus is smooth in contour and has normal myometrial echogenicity. No visible fibroid. There are small anechoic cysts in the cervix suggestive of nabothian cysts. Adnexa: Both ovaries are visualized. There is normal color flow to the adnexa. There is no ovarian torsion. There is no pelvic ascites or fluid collection. Right ovary measures 3.6 x 3.3 x 3.9 cm and volume 24.3 mL. There is an echogenic cyst measuring 2.2 x 2.5 x 2.2 cm. Suspicious of hemorrhagic etiology. There is minimal free fluid adjacent to this cyst. Previously right ovary measured 3.5 x 3.0 x 3.3 cm. Left ovary measures 3.6 x 2.4 x 2.4 cm and volume 10.9 mL. It appears unremarkable. Previously left ovary measured 3.6 x 2.4 x 2.2 cm. US/US pelvic and transvaginal IMPRESSION: 1. Small nabothian cysts in the cervix. The uterus is unremarkable. 2. Likely hemorrhagic cyst right ovary. Minimal free fluid adjacent to this cyst. 3. The left ovary is unremarkable.
[2022-04-23 12:47] LABS: Hematocrit 40.7 % (37.0-47.0); Hemoglobin 14.2 g/dl (12.0-16.0); Mean Corpuscular HGB Conc 34.9 g/dl (31.0-35.0); Mean Corpuscular Hemoglobin 31.4 pg (27.0-33.0); Mean Platelet Volume 10.5 fL (9.4-12.3); Platelet Count 247 X10*3/uL (160-400); Red Blood Count 4.52 X10*6/uL (4.20-5.50); Red Cell Distribution Width 12.5 % (11.0-16.0); White Blood Count 6.7 X10*3/uL (4.8-10.8)
[2022-04-23 13:31] LABS: HCG Quantitative < 2 mIU/mL; TSH reflex Free T4 1.44 uIU/mL (0.32-4.0)
[2022-04-25 08:44] LABS: Prolactin 9.8 ng/mL
== END 2022-04-23 12:00 | disposition home or self-care (01) ==
LOC: HO.US 11:59
PROVIDERS: PCP Internal Medicine; Visit Provider Obstetrics & Gynecology
DX: N93.9 Abnormal uterine and vaginal bleeding, unspecified (principal); N83.299 Other ovarian cyst, unspecified side; N92.6 Irregular menstruation, unspecified; Z32.02 Encounter for pregnancy test, result negative
CPT/HCPCS: 76830; 76856; 81025; 84146; 84443; 84702; 85027

== ENCOUNTER → 2022-05-12 09:37 | Outpatient (BNVA) | payer OTHER, MEDICAID, SELFPAY | PROVIDERS: PCP Internal Medicine; Visit Provider Obstetrics & Gynecology | DX: Z13.89 Encounter for screening for other disorder (principal) ==

== ENCOUNTER 2022-07-26 12:32 | Emergency (ER) | payer OTHER, MEDICAID, SELFPAY ==
[2022-07-26 12:47] VITALS: BP 152/86; PULSE 82; RESP 19; TEMP 36.6; O2SAT 98; BMI 23.7
--- NOTE | 2022-07-26 12:48 | ED.FEMALEGU ---
HPI - Female Genitourinary General Chief complaint: Vaginal Bleeding Stated complaint: vaginal bleeding Time Seen by Provider: 07/26/22 14:45 Source: patient Mode of arrival: ambulatory Limitations: no limitations History of Present Illness HPI Narrative: Patient with very light bleeding. LMP was at the end of April, tests at home were negative. NO pain, no birthcontrol and is sexually active trying to have a baby. G0 Related Data Home Medications Medication Instructions Recorded Confirmed No Known Home Meds 11/13/21 11/13/21 Allergies Allergy/AdvReac Type Severity Reaction Status Date / Time No Known Allergies Allergy Verified 07/26/22 12:47 Review of Systems Review of Systems: Yes all other systems are reviewed and are negative Genitourinary: Comments: very light vaginal bleeding Neurologic: Denies Sensory deficit (Neuro) PMFSH Past Medical History Medical History ASCUS with positive high risk HPV cervical PRETTY I (cervical intraepithelial neoplasia I) Surgical History History of surgery on arm Family History Family History Father High cholesterol Hypertension Mother Alive and well Maternal Grandmother Cancer Sister Cancer Social History Social History Alcohol intake: current Alcohol intake frequency: holidays/special occasions only Advance Directives: No Advance Directives Information Provided: Yes Sexual orientation: Straight/Heterosexual Gender identity: Female Physical Exam Vital Signs: Vital Signs: Last Vital Signs Temp 98.5 F 07/26/22 14:36 Pulse 72 07/26/22 14:36 Resp 18 07/26/22 14:36 BP 116/77 07/26/22 14:36 Pulse Ox 100 07/26/22 14:36 O2 Del Method Room Air 07/26/22 14:36 BMI result Body Mass Index 23.7 Const: General: healthy appearing Nutritional Appearance: average body habitus Orientation/consciousness: oriented to person and patient oriented x3 Limitations: no limitations HEENT: Head: Yes normal to inspection Ears: external ears normal General nose exam: Normal external nose present Mouth: Normal oral and palatal mucosa present and oropharynx normal Throat: Yes posterior oropharynx normal Eyes: General: appearance normal, both eyes and all related structures Neck: Other: supple Neck: Yes normal visual inspection Chest: Chest palpation & inspection: normal inspection of the chest Resp: Auscultation: clear to auscultation bilaterally Cardio: Jugular venous distension: no JVD Rate: regular rate Rhythm: regular rhythm Heart sounds: S1 normal heart sound present and S2 normal heart sound present GI: Inspection: Yes normal to inspection Palpation (GI): Soft to palpation, nontender and No hepatosplenomegaly present Auscultation: normal bowel sounds : General: Yes no CVA tenderness Back/Spine/Pelvis: Back: no CVA tenderness Skin: General skin exam: no rashes or lesions noted Neuro: General: oriented to person and patient oriented x3 Cranial nerves: Yes CN's II-XII intact bilaterally Motor exam (neuro): 5/5 motor strength present throughout Sensory Exam: No Sensory deficit (Neuro) Extrem: General: Yes normal to inspection Psych: Appearance: grossly normal Course Course Course Narrative: RME - 27 yo female with history of irregular menstrual cycle presenting to the ER for evaluation of abnormal painless vaginal bleeding, on day 8 or 9 of her cycle now which is very long for her. Bleeding is light. Follows w/ Dr. Jones. Not on any contraceptives. Sexually active. Negative home test. 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 07/26/22 13:06 07/26/22 13:06 Labs: Lab Results 07/26/22 07/26/22 07/26/22 Range/Units 13:06 13:06 13:07 WBC 5.7 (4.8-10.8) X10*3/uL RBC 4.94 (4.20-5.50) X10*6/uL Hgb 15.1 (12.0-16.0) g/dl Hct 44.1 (37.0-47.0) % MCV 89.3 (80.0-98.0) fL MCH 30.6 (27.0-33.0) pg MCHC 34.2 (31.0-35.0) g/dl RDW 12.1 (11.0-16.0) % Plt Count 241 (160-400) X10*3/uL MPV 10.1 (9.4-12.3) fL Immature Gran % (Auto) 0.2 (0.0-0.4) % Neut % (Auto) 62.7 (45-73) % Lymph % (Auto) 27.2 (20-40) % [place] % (Auto) 6.8 (2-11) % Eos % (Auto) 2.1 (0-4) % Baso % (Auto) 1.0 (0-2) % Lymph # (Auto) 1.6 (1.2-4.9) X10*3/uL [place] # (Auto) 0.4 (0.1-1.2) X10*3/uL Eos # (Auto) 0.1 (0.0-0.4) X10*3/uL Baso # (Auto) 0.1 (0.0-0.2) X10*3/uL Abs Immat Gran (auto) 0.01 (0.00-0.03) X10*3/uL Absolute Neuts (auto) 3.6 (2.0-8.3) x10*3/uL Absolute Nucleated RBC 0.000 (0.0-0.012) X10*3/uL Nucleated RBC % (auto) 0.0 (0.0-0.2) /100WBC Sodium 141 (135-145) mmol/L Potassium 4.0 D (3.3-5.1) mmol/L Chloride 105 (96-108) mmol/L Carbon Dioxide 27 (22-29) mmol/L Anion Gap 13 (12-20) BUN 9 (9-16) mg/dL Creatinine 0.85 (0.5-1.4) mg/dL Estim Creat Clear Calc 109.1 Estimated GFR > 60 Random Glucose 46 L* (60-115) mg/dL Calcium 9.6 (8.4-10.2) mg/dL Magnesium 2.1 (1.6-2.6) mg/dL Total Bilirubin 0.8 (0.0-1.0) mg/dL Direct Bilirubin 0.2 (0.0-0.5) mg/dL AST 16 (5-31) U/L ALT 14 (0-31) U/L Alkaline Phosphatase 68 (39-117) U/L Total Protein 7.9 (6.5-8.0) g/dL Albumin 4.2 (3.5-5.0) g/dL Urine Color Yellow Urine Appearance Cloudy Urine pH 6.5 (5.0-9.0) Ur Specific [place] 1.025 (1.005-1.025) Urine Protein Trace (Neg-Trace) mg/dL Urine Glucose (UA) Negative (Negative) mg/dL Urine Ketones Trace (Negative) mg/dL Urine Blood Large (3+) H (Negative) Urine Nitrite Negative (Negative) Ur Leukocyte Esterase Small (1+) H (Negative) Urine RBC 6-10 H (0-2) /HPF Urine WBC 0-5 (0-5) /HPF Ur Squamous Epith Cells 11-20 (0-2) /HPF Urine Bacteria Trace (None Seen) Hyaline Casts 0-2 (0-2) /LPF Urine Test (NEGATIVE) 07/26/22 Range/Units 13:07 WBC (4.8-10.8) X10*3/uL RBC (4.20-5.50) X10*6/uL Hgb (12.0-16.0) g/dl Hct (37.0-47.0) % MCV (80.0-98.0) fL MCH (27.0-33.0) pg MCHC (31.0-35.0) g/dl RDW (11.0-16.0) % Plt Count (160-400) X10*3/uL MPV (9.4-12.3) fL Immature Gran % (Auto) (0.0-0.4) % Neut % (Auto) (45-73) % Lymph % (Auto) (20-40) % [place] % (Auto) (2-11) % Eos % (Auto) (0-4) % Baso % (Auto) (0-2) % Lymph # (Auto) (1.2-4.9) X10*3/uL [place] # (Auto) (0.1-1.2) X10*3/uL Eos # (Auto) (0.0-0.4) X10*3/uL Baso # (Auto) (0.0-0.2) X10*3/uL Abs Immat Gran (auto) (0.00-0.03) X10*3/uL Absolute Neuts (auto) (2.0-8.3) x10*3/uL Absolute Nucleated RBC (0.0-0.012) X10*3/uL Nucleated RBC % (auto) (0.0-0.2) /100WBC Sodium (135-145) mmol/L Potassium (3.3-5.1) mmol/L Chloride (96-108) mmol/L Carbon Dioxide (22-29) mmol/L Anion Gap (12-20) BUN (9-16) mg/dL Creatinine (0.5-1.4) mg/dL Estim Creat Clear Calc Estimated GFR Random Glucose (60-115) mg/dL Calcium (8.4-10.2) mg/dL Magnesium (1.6-2.6) mg/dL Total Bilirubin (0.0-1.0) mg/dL Direct Bilirubin (0.0-0.5) mg/dL AST (5-31) U/L ALT (0-31) U/L Alkaline Phosphatase (39-117) U/L Total Protein (6.5-8.0) g/dL Albumin (3.5-5.0) g/dL Urine Color Urine Appearance Urine pH (5.0-9.0) Ur Specific [place] (1.005-1.025) Urine Protein (Neg-Trace) mg/dL Urine Glucose (UA) (Negative) mg/dL Urine Ketones (Negative) mg/dL Urine Blood (Negative) Urine Nitrite (Negative) Ur Leukocyte Esterase (Negative) Urine RBC (0-2) /HPF Urine WBC (0-5) /HPF Ur Squamous Epith Cells (0-2) /HPF Urine Bacteria (None Seen) Hyaline Casts (0-2) /LPF Urine Test NEGATIVE (NEGATIVE) External Record Review External record reviewed: Prior outpatient labs Tests considered The following testing was considered but not selected: I considered an ultrasound but patient is nontender, not Discharge Plan Discharge Clinical Impression: Abnormal uterine bleeding (AUB) Patient Disposition: Home, Self-Care Instructions: Dysfunctional Uterine Bleeding (ED) Prescriptions: No Action No Known Home Meds Referrals: Gian Jones MD [Physician] - 5 days
[2022-07-26 13:12] LABS: MANUAL DIFF FLAG NO
[2022-07-26 13:16] LABS: Appearance Urine Cloudy; Color Urine Yellow; Glucose Urine UA Negative (Negative); Leukocyte Esterase Urine Small (1+) (Negative); Nitrite Urine Negative (Negative); PH 6.5 (5.0-9.0); Specific Gravity - Urine 1.025 (1.005-1.025); UMIC TRIGGER UACC YES; Urine Blood Large (3+) (Negative); Urine Ketones Trace mg/dL (Negative); Urine Protein Trace mg/dL (Neg-Trace)
[2022-07-26 13:16] LABS: Basophils Absolute Auto 0.1 X10*3/uL (0.0-0.2); Eosinophils Absolute Auto 0.1 X10*3/uL (0.0-0.4); Eosinophils Percent Auto 2.1 % (0-4); Hematocrit 44.1 % (37.0-47.0); Hemoglobin 15.1 g/dl (12.0-16.0); Imm Gran Abs Auto 0.01 X10*3/uL (0.00-0.03); Imm Gran Pct Auto 0.2 % (0.0-0.4); Lymphocytes Absolute Auto 1.6 X10*3/uL (1.2-4.9); Lymphocytes Percent Auto 27.2 % (20-40); Mean Corpuscular HGB Conc 34.2 g/dl (31.0-35.0); Mean Corpuscular Hemoglobin 30.6 pg (27.0-33.0); Mean Corpuscular Volume 89.3 fL (80.0-98.0); Mean Platelet Volume 10.1 fL (9.4-12.3); Monocytes Absolute Auto 0.4 X10*3/uL (0.1-1.2); Monocytes Percent Auto 6.8 % (2-11); Neutrophils Absolute Auto 3.6 x10*3/uL (2.0-8.3); Neutrophils Percent Auto 62.7 % (45-73); Platelet Count 241 X10*3/uL (160-400); Red Blood Count 4.94 X10*6/uL (4.20-5.50); Red Cell Distribution Width 12.1 % (11.0-16.0); White Blood Count 5.7 X10*3/uL (4.8-10.8)
[2022-07-26 13:23] LABS: UPreg QC Valid YES; Urine Pregnancy NEGATIVE (NEGATIVE)
[2022-07-26 13:24] LABS: Bacteria Urine Trace (None Seen); Hyaline Casts Urine 0-2 /LPF (0-2); UACC Culture Trigger YES; WBC Urine 0-5 /HPF (0-5)
[2022-07-26 14:06] LABS: Alanine Aminotransferase 14 U/L (0-31); Albumin Level 4.2 g/dL (3.5-5.0); Alkaline Phosphatase 68 U/L (39-117); Anion Gap 13 (12-20); Aspartate Amino Transferase 16 U/L (5-31); Bilirubin Direct 0.2 mg/dL (0.0-0.5); Bilirubin Total 0.8 mg/dL (0.0-1.0); Blood Urea Nitrogen 9 mg/dL (9-16); Calcium 9.6 mg/dL (8.4-10.2); Carbon Dioxide 27 mmol/L (22-29); Chloride 105 mmol/L (96-108); Creatinine Clr Calc Pharmacy 109.1; Estimated Glomerular Filt Rate > 60; Glucose Random 46 mg/dL (60-115); Magnesium 2.1 mg/dL (1.6-2.6); Sodium 141 mmol/L (135-145); Total Protein 7.9 g/dL (6.5-8.0)
[2022-07-26 14:36] VITALS: BP 116/77; PULSE 72; RESP 18; TEMP 36.9; O2SAT 100
[2022-07-26 15:59] LABS: T4 Thyroxine 6.1 ug/dL (4.5-12.0); Thyroid Stimulating Hormone 1.17 uIU/mL (0.32-4.0)
[2022-07-26 17:49] LABS: Glucose, Whole Blood 99 mg/dL (60-115)
== END 2022-07-26 15:44 | disposition home or self-care (01) ==
PROVIDERS: Physician Assistant; Emergency Provider Emergency Medicine; PCP Internal Medicine
DX: N93.9 Abnormal uterine and vaginal bleeding, unspecified (principal); N87.0 Mild cervical dysplasia
CPT/HCPCS: 36415; 80048; 80076; 81001; 81025; 82947; 83735; 84436; 84443; 85025; 87086; 99283; 99284

== ENCOUNTER 2022-08-01 10:25 | Emergency (ER) | payer OTHER, MEDICAID, SELFPAY ==
--- NOTE | ~2022-08-01 | US_ITS ---
EXAMINATION: US PELVIS CLINICAL INFORMATION: Heavy vaginal bleed COMPARISON: Ultrasound pelvis 04/23/2022 TECHNIQUE: Ultrasound of the pelvis is performed using both transabdominal and transvaginal transducers along with Doppler. Transvaginal imaging is performed due to inadequate visualization transabdominally. FINDINGS: Uterus: The uterus is anteverted, anteverted and measures 9.6 x 2.7 x 4.5 cm. The double wall endometrial thickness is 0.6 cm. The uterus is smooth in contour and has normal myometrial echogenicity. No visible fibroid. There are small nabothian cysts seen in the cervix. Adnexa: Both ovaries are visualized. There is normal color flow to the adnexa. There is no ovarian torsion. There is no pelvic ascites or fluid collection. Right ovary measures 4.2 x 3.3 x 2.9 cm and volume 21.1 mL. There is anechoic cyst with septation measuring 1.4 x 1.1 x 1.2 cm. There is minimal free fluid in the adnexa. Previously right ovary measured 3 6.6 x 3.3 x 3.3 cm. Left ovary measures 4.1 x 2.0 x 3.5 cm and volume 15.0 mL. No focal lesion seen. Previously left ovary measured 3.6 x 2.4 x 2.4 cm. Prominent vessels are seen in the left adnexa. US/US pelvic and transvaginal IMPRESSION: 1. Complex cyst right ovary measuring 1.4 cm. 2. The left ovary and the uterus is unremarkable. 3. There is minimal free fluid in the right adnexa. 4. 4. Likely pelvic congestion left adnexa.
[2022-08-01 10:30] VITALS: BP 116/91; PULSE 97; RESP 20; TEMP 36.7; O2SAT 96; BMI 23.7
[2022-08-01 11:10] LABS: MANUAL DIFF FLAG NO
--- NOTE | 2022-08-01 11:10 | ED_ITS ---
HPI - General Adult General Chief complaint: Vaginal Bleeding Stated complaint: heavy vaginal bleeding Time Seen by Provider: 08/01/22 11:05 Source: patient Limitations: no limitations History of Present Illness HPI narrative: THIS IS 27 YEARS OLD FEMALE PRESENTED TO THE EMERGENCY DEPARTMENT COMPLAINING OF VAGINAL BLEEDING SINCE July SHE IS . SHE DENIES ANY FEVER CHILLS VOMITING. Onset (ago): day(s) (14) Radiation: non-radiation Severity: moderate Quality: burning Exacerbating factors: none Associated symptoms: denies other symptoms Related Data Previous Rx's Medication Instructions Recorded desogestrel 0.15 mg-ethinyl 1 tab PO DAILY #28 tabs 08/01/22 estradiol 0.03 mg tablet Allergies Allergy/AdvReac Type Severity Reaction Status Date / Time No Known Allergies Allergy Verified 07/26/22 12:47 Review of Systems Constitutional: Constitutional: Reports no additional constitutional complaints Eyes: Eyes: Reports no additional eye complaints Respiratory: Respiratory: Reports no additional respiratory complaints Genitourinary: Genitourinary: Reports no additional female genitourinary complaints and Reports as per [facility] Past Medical History Medical History ASCUS with positive high risk HPV cervical PRETTY I (cervical intraepithelial neoplasia I) Surgical History History of surgery on arm Family History Family History Father High cholesterol Hypertension Mother Alive and well Maternal Grandmother Cancer Sister Cancer Social History Social History Alcohol intake: current Alcohol intake frequency: holidays/special occasions only Sexual orientation: Straight/Heterosexual Gender identity: Female Physical Exam ED Vital Signs: Vital Signs - 24 hr 08/01/22 10:30 08/01/22 15:40 Temperature 98.1 F Pulse Rate 97 72 Respiratory Rate 20 18 Blood Pressure 116/91 H 121/79 Pulse Oximetry 96 100 Oxygen Delivery Method Room Air Room Air BMI result Body Mass Index 23.7 Const General: cooperative Nutritional Appearance: well nourished Orientation/consciousness: patient oriented x3 Limitations: no limitations HENMT Head: Yes normal to inspection Ears: hearing grossly normal bilaterally General nose exam: Normal external nose present Face and sinus: Yes normal facial exam Mouth: Normal oral and palatal mucosa present Throat: Yes posterior oropharynx normal Neck Neck: Yes normal visual inspection Chest Chest palpation & inspection: normal inspection of the chest Resp Effort & Inspection: normal respiratory effort Auscultation: clear to auscultation bilaterally Cardio Jugular venous distension: no JVD Rhythm: regular rhythm Bruits: Abdominal aortic bruit present GI Inspection: Yes normal to inspection Palpation (GI): Abdominal aortic bruit present Percussion: Yes normal to percussion Other: PELVIC EXAM PERFORM A ACTIVELY BLEEDING BLEEDING WAS CLEARED WITH 2 SWABS Skin General skin exam: no rashes or lesions noted and elasticity normal Wounds: no wounds Neuro General: patient oriented x3 Cranial nerves: Yes CN's II-XII intact bilaterally Course Reevaluation(s) Reevaluation #1: Patient was seen by OBGYN okay to discharge home with Medications Administered Discontinued Medications Generic Name Dose Route Start Last Admin Trade Name Freq PRN Reason Stop Dose Admin Sodium Chloride 1,000 mls @ 999 mls/hr 08/01/22 11:45 08/01/22 13:49 Ns IV 08/01/22 12:45 Infused .Q1H1M CHLOÉ Infusion Medical Decision Making Medical Decision Making MDM Narrative: Patient presented with the dysfunctional uterine bleeding hCG is negative she was seen in consultation by OBGYN. Okay to discharge per medical manager Differential Diagnosis Differential Diagnoses: The differential diagnosis associated with the presentation includes Differential diagnosis that topic , dysfunctional uterine bleeding, anemia, thrombocytopenia Admission/Observation Consideration of admission/observation: Escalation of care including admission/observation considered Consult Healthcare Provider Management of the patient was discussed with: Nursing Assistants Teacher Dr Jones Lab Data [facility] Lab Attestation statement: I reviewed the patient's lab results. 08/01/22 11:00 08/01/22 10:59 Labs: Lab Results 08/01/22 08/01/22 08/01/22 Range/Units 10:59 10:59 10:59 WBC (4.8-10.8) X10*3/uL RBC (4.20-5.50) X10*6/uL Hgb (12.0-16.0) g/dl Hct (37.0-47.0) % MCV (80.0-98.0) fL MCH (27.0-33.0) pg MCHC (31.0-35.0) g/dl RDW (11.0-16.0) % Plt Count (160-400) X10*3/uL MPV (9.4-12.3) fL Immature Gran % (Auto) (0.0-0.4) % Neut % (Auto) (45-73) % Lymph % (Auto) (20-40) % [place] % (Auto) (2-11) % Eos % (Auto) (0-4) % Baso % (Auto) (0-2) % Lymph # (Auto) (1.2-4.9) X10*3/uL [place] # (Auto) (0.1-1.2) X10*3/uL Eos # (Auto) (0.0-0.4) X10*3/uL Baso # (Auto) (0.0-0.2) X10*3/uL Abs Immat Gran (auto) (0.00-0.03) X10*3/uL Absolute Neuts (auto) (2.0-8.3) x10*3/uL Absolute Nucleated RBC (0.0-0.012) X10*3/uL Nucleated RBC % (auto) (0.0-0.2) /100WBC PT 11.6 (10.0-13.1) SEC INR 1.0 (0.9-1.1) APTT 32.2 (26.0-36.4) SEC Sodium 139 (135-145) mmol/L Potassium 3.7 (3.3-5.1) mmol/L Chloride 105 (96-108) mmol/L Carbon Dioxide 27 (22-29) mmol/L Anion Gap 11 L (12-20) BUN 7 L (9-16) mg/dL Creatinine 0.84 (0.5-1.4) mg/dL Estim Creat Clear Calc 110.4 Estimated GFR > 60 Random Glucose 80 (60-115) mg/dL Calcium 9.6 (8.4-10.2) mg/dL Magnesium 2.2 (1.6-2.6) mg/dL Total Bilirubin 0.9 (0.0-1.0) mg/dL AST 21 (5-31) U/L ALT 19 (0-31) U/L Alkaline Phosphatase 74 (39-117) U/L Total Protein 8.4 H (6.5-8.0) g/dL Albumin 4.4 (3.5-5.0) g/dL Beta HCG, Quant mIU/mL Urine Color Urine Appearance Urine pH (5.0-9.0) Ur Specific [place] (1.005-1.025) Urine Protein (Neg-Trace) mg/dL Urine Glucose (UA) (Negative) mg/dL Urine Ketones (Negative) mg/dL Urine Blood (Negative) Urine Nitrite (Negative) Ur Leukocyte Esterase (Negative) Urine RBC (0-2) /HPF Urine WBC (0-5) /HPF Ur Squamous Epith Cells (0-2) /HPF Urine Bacteria (None Seen) Hyaline Casts (0-2) /LPF Chlam trachomat DNA PCR (Not Detect.) N.gonorrhoeae DNA (PCR) (Not Detect.) Blood Type O Positive Antibody Screen NEGATIVE 08/01/22 08/01/22 08/01/22 Range/Units 11:00 11:59 13:25 WBC 5.9 (4.8-10.8) X10*3/uL RBC 4.88 (4.20-5.50) X10*6/uL Hgb 15.0 (12.0-16.0) g/dl Hct 43.4 (37.0-47.0) % MCV 88.9 (80.0-98.0) fL MCH 30.7 (27.0-33.0) pg MCHC 34.6 (31.0-35.0) g/dl RDW 12.2 (11.0-16.0) % Plt Count 238 (160-400) X10*3/uL MPV 10.2 (9.4-12.3) fL Immature Gran % (Auto) 0.2 (0.0-0.4) % Neut % (Auto) 73.0 (45-73) % Lymph % (Auto) 14.7 L (20-40) % [place] % (Auto) 9.2 (2-11) % Eos % (Auto) 2.6 (0-4) % Baso % (Auto) 0.3 (0-2) % Lymph # (Auto) 0.9 L (1.2-4.9) X10*3/uL [place] # (Auto) 0.5 (0.1-1.2) X10*3/uL Eos # (Auto) 0.2 (0.0-0.4) X10*3/uL Baso # (Auto) 0.0 (0.0-0.2) X10*3/uL Abs Immat Gran (auto) 0.01 (0.00-0.03) X10*3/uL Absolute Neuts (auto) 4.3 (2.0-8.3) x10*3/uL Absolute Nucleated RBC 0.000 (0.0-0.012) X10*3/uL Nucleated RBC % (auto) 0.0 (0.0-0.2) /100WBC PT (10.0-13.1) SEC INR (0.9-1.1) APTT (26.0-36.4) SEC Sodium (135-145) mmol/L Potassium (3.3-5.1) mmol/L Chloride (96-108) mmol/L Carbon Dioxide (22-29) mmol/L Anion Gap (12-20) BUN (9-16) mg/dL Creatinine (0.5-1.4) mg/dL Estim Creat Clear Calc Estimated GFR Random Glucose (60-115) mg/dL Calcium (8.4-10.2) mg/dL Magnesium (1.6-2.6) mg/dL Total Bilirubin (0.0-1.0) mg/dL AST (5-31) U/L ALT (0-31) U/L Alkaline Phosphatase (39-117) U/L Total Protein (6.5-8.0) g/dL Albumin (3.5-5.0) g/dL Beta HCG, Quant < 2 mIU/mL Urine Color RED Urine Appearance Cloudy Urine pH 5.5 (5.0-9.0) Ur Specific [place] 1.015 (1.005-1.025) Urine Protein 30 (1+) H (Neg-Trace) mg/dL Urine Glucose (UA) Negative (Negative) mg/dL Urine Ketones 40 (Negative) mg/dL Urine Blood Large (3+) H (Negative) Urine Nitrite Positive H (Negative) Ur Leukocyte Esterase Trace H (Negative) Urine RBC >20 H (0-2) /HPF Urine WBC 11-20 H (0-5) /HPF Ur Squamous Epith Cells 11-20 (0-2) /HPF Urine Bacteria 1+ (None Seen) Hyaline Casts 0-2 (0-2) /LPF Chlam trachomat DNA PCR (Not Detect.) N.gonorrhoeae DNA (PCR) (Not Detect.) Blood Type Antibody Screen 08/01/22 Range/Units 14:36 WBC (4.8-10.8) X10*3/uL RBC (4.20-5.50) X10*6/uL Hgb (12.0-16.0) g/dl Hct (37.0-47.0) % MCV (80.0-98.0) fL MCH (27.0-33.0) pg MCHC (31.0-35.0) g/dl RDW (11.0-16.0) % Plt Count (160-400) X10*3/uL MPV (9.4-12.3) fL Immature Gran % (Auto) (0.0-0.4) % Neut % (Auto) (45-73) % Lymph % (Auto) (20-40) % [place] % (Auto) (2-11) % Eos % (Auto) (0-4) % Baso % (Auto) (0-2) % Lymph # (Auto) (1.2-4.9) X10*3/uL [place] # (Auto) (0.1-1.2) X10*3/uL Eos # (Auto) (0.0-0.4) X10*3/uL Baso # (Auto) (0.0-0.2) X10*3/uL Abs Immat Gran (auto) (0.00-0.03) X10*3/uL Absolute Neuts (auto) (2.0-8.3) x10*3/uL Absolute Nucleated RBC (0.0-0.012) X10*3/uL Nucleated RBC % (auto) (0.0-0.2) /100WBC PT (10.0-13.1) SEC INR (0.9-1.1) APTT (26.0-36.4) SEC Sodium (135-145) mmol/L Potassium (3.3-5.1) mmol/L Chloride (96-108) mmol/L Carbon Dioxide (22-29) mmol/L Anion Gap (12-20) BUN (9-16) mg/dL Creatinine (0.5-1.4) mg/dL Estim Creat Clear Calc Estimated GFR Random Glucose (60-115) mg/dL Calcium (8.4-10.2) mg/dL Magnesium (1.6-2.6) mg/dL Total Bilirubin (0.0-1.0) mg/dL AST (5-31) U/L ALT (0-31) U/L Alkaline Phosphatase (39-117) U/L Total Protein (6.5-8.0) g/dL Albumin (3.5-5.0) g/dL Beta HCG, Quant mIU/mL Urine Color Urine Appearance Urine pH (5.0-9.0) Ur Specific [place] (1.005-1.025) Urine Protein (Neg-Trace) mg/dL Urine Glucose (UA) (Negative) mg/dL Urine Ketones (Negative) mg/dL Urine Blood (Negative) Urine Nitrite (Negative) Ur Leukocyte Esterase (Negative) Urine RBC (0-2) /HPF Urine WBC (0-5) /HPF Ur Squamous Epith Cells (0-2) /HPF Urine Bacteria (None Seen) Hyaline Casts (0-2) /LPF Chlam trachomat DNA PCR NOT DETECTED (Not Detect.) N.gonorrhoeae DNA (PCR) NOT DETECTED (Not Detect.) Blood Type Antibody Screen Independent Interpretation I performed an independent interpretation of an: Ultrasound Radiology Impression Discussion of test interpretation with radiology: I have reviewed the radiologist's reading. Radiologist Impression: The uterus is smooth in contour and has normal myometrial echogenicity. ? No visible fibroid. There are small nabothian cysts seen in the cervix. Adnexa: Both ovaries are visualized. There is normal color flow to the adnexa. There is no ovarian torsion.? There is no pelvic ascites or fluid collection. Right ovary measures 4.2 x 3.3 x 2.9 cm and volume 21.1 mL. There is anechoic cyst with septation measuring 1.4 x 1.1 x 1.2 cm. There is minimal free fluid in the adnexa. Previously right ovary measured 3 6.6 x 3.3 x 3.3 cm. Left ovary measures 4.1 x 2.0 x 3.5 cm and volume 15.0 mL. No focal lesion seen. Previously left ovary measured 3.6 x 2.4 x 2.4 cm. Prominent vessels are seen in the left adnexa. US/US pelvic and transvaginal IMPRESSION: 1.? Complex cyst right ovary measuring 1.4 cm. 2.? The left ovary and the uterus is unremarkable. 3.? There is minimal free fluid in the right adnexa. 4.? 4. Likely pelvic congestion left adnexa. ? External Record Review External record reviewed: Inpatient record prior ED visit Discharge Plan Discharge Clinical Impression: Vaginal bleeding Patient Disposition: Home, Self-Care Instructions: Dysfunctional Uterine Bleeding (ED) Additional Instructions: We sent a prescription for you for a better control pills to regularize you. You should take a 28 day cycle and then repeated 2 more times we gave you to refill a follow-up with Dr. Robert Murphy as you discussed with him Prescriptions: New desogestrel-ethinyl estradiol 0.15-0.03 mg tablet 1 tab PO DAILY Qty: 28 2RF Stand Alone Forms: Work/School Release Interventions: ED Discharge Assessment Last Done: 08/01/22 15:43 Discharge Date/Time: 08/01/22 15:45
[2022-08-01 11:12] LABS: Basophils Percent Auto 0.3 % (0-2); Eosinophils Absolute Auto 0.2 X10*3/uL (0.0-0.4); Eosinophils Percent Auto 2.6 % (0-4); Hematocrit 43.4 % (37.0-47.0); Imm Gran Abs Auto 0.01 X10*3/uL (0.00-0.03); Imm Gran Pct Auto 0.2 % (0.0-0.4); Lymphocytes Absolute Auto 0.9 X10*3/uL (1.2-4.9); Lymphocytes Percent Auto 14.7 % (20-40); Mean Corpuscular HGB Conc 34.6 g/dl (31.0-35.0); Mean Corpuscular Hemoglobin 30.7 pg (27.0-33.0); Mean Corpuscular Volume 88.9 fL (80.0-98.0); Mean Platelet Volume 10.2 fL (9.4-12.3); Monocytes Absolute Auto 0.5 X10*3/uL (0.1-1.2); Monocytes Percent Auto 9.2 % (2-11); Neutrophils Absolute Auto 4.3 x10*3/uL (2.0-8.3); Platelet Count 238 X10*3/uL (160-400); Red Blood Count 4.88 X10*6/uL (4.20-5.50); Red Cell Distribution Width 12.2 % (11.0-16.0); White Blood Count 5.9 X10*3/uL (4.8-10.8)
[2022-08-01 11:20] LABS: Prothrombin Time 11.6 SEC (10.0-13.1)
[2022-08-01 11:23] LABS: Partial Thromboplastin Time 32.2 SEC (26.0-36.4)
--- NOTE | 2022-08-01 11:25 | PC.NURSE ---
Patient had pelvic exam by ED provider, this nurse in room during procedure. Patient tolerated procedure well.
[2022-08-01 11:30] LABS: Alanine Aminotransferase 19 U/L (0-31); Albumin Level 4.4 g/dL (3.5-5.0); Alkaline Phosphatase 74 U/L (39-117); Anion Gap 11 (12-20); Aspartate Amino Transferase 21 U/L (5-31); Bilirubin Total 0.9 mg/dL (0.0-1.0); Blood Urea Nitrogen 7 mg/dL (9-16); Calcium 9.6 mg/dL (8.4-10.2); Carbon Dioxide 27 mmol/L (22-29); Chloride 105 mmol/L (96-108); Creatinine Clr Calc Pharmacy 110.4; Estimated Glomerular Filt Rate > 60; Glucose Random 80 mg/dL (60-115); Magnesium 2.2 mg/dL (1.6-2.6); Potassium 3.7 mmol/L (3.3-5.1); Sodium 139 mmol/L (135-145); Total Protein 8.4 g/dL (6.5-8.0)
[2022-08-01] MEDS: 0.9 % Sodium Chloride 1,000 ML 999 ML IV (11:46)
--- NOTE | 2022-08-01 11:57 | PM.GYNCN ---
DETECTIVE AUTOMOBILE SECTION - CN: HPI Data of Consult Consult date: 08/01/22 Primary Care Provider: Unknown Physician Consult Narrative Narrative: I was consulted on Anna Betts who is a 27 year old female presented the emergency room with heavy vaginal bleeding stated age duration. In the emergency room the following workup was done: H&H 15/43.4, UPT and hCG less than 2, TSH done week ago within normal. Pelvic ultrasound done in 05/08 showed the following: Uterus: The uterus is anteverted and measures 7.5 x 3.7 x 5.0 cm. The double wall endometrial thickness is 1.2 cm.? The uterus is smooth in contour and has normal myometrial echogenicity. No visible fibroid. There are small anechoic cysts in the cervix suggestive of nabothian cysts. Adnexa: Both ovaries are visualized. There is normal color flow to the adnexa. There is no ovarian torsion. There is no pelvic ascites or fluid collection. Right ovary measures 3.6 x 3.3 x 3.9 cm and volume 24.3 mL. There is an ?echogenic cyst measuring 2.2 x 2.5 x 2.2 cm. Suspicious of hemorrhagic etiology. There is minimal free fluid adjacent to this cyst. Previously right ovary measured 3.5 x 3.0 x 3.3 cm. Left ovary measures 3.6 x 2.4 x 2.4 cm and volume 10.9 mL. It appears unremarkable. Previously left ovary measured 3.6 x 2.4 x 2.2 cm. 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 - Review of Systems Review of Systems ROS Unobtainable: All systems reviewed & are unremarkable except as noted in HPI and below Cardiovascular: Denies Palpatations, Loss of consciousness or Chest pain Respiratory: Denies Cough, Wheezing or Shortness of breath Musculoskeletal: Denies Low back pain Gastrointestinal: Denies Heartburn, Constipation, Diarrhea, Nausea or Vomiting Genitourinary: Denies Pain with urination, Burning with urination or Urinary frequency Neurological: Denies Migranes Psychological: Denies Depression OB [facility] Past Medical History Medical History ASCUS with positive high risk HPV cervical PRETTY I (cervical intraepithelial neoplasia I) Family History Family History Father High cholesterol Hypertension Mother Alive and well Maternal Grandmother Cancer Sister Cancer Surgical History Surgical History History of surgery on arm Social History Social History Alcohol intake: current Alcohol intake frequency: holidays/special occasions only Smoked in Last 30 Days: No Use of substances other than those prescribed or required for medical reasons: No Advance Directives: No Advance Directives Information Provided: Yes Sexual orientation: Straight/Heterosexual Gender identity: Female Meds Allergies Allergy/AdvReac Type Severity Reaction Status Date / Time No Known Allergies Allergy Verified 07/26/22 12:47 Active Medications: Current Medications Sodium Chloride (Ns) 1,000 mls @ 999 mls/hr IV .Q1H1M CHLOÉ Stop: 08/01/22 12:45 Last Admin: 08/01/22 11:46 Dose: 999 mls/hr Home Medications Medication Instructions Recorded Confirmed Last Taken Type No Known Home Meds 11/13/21 11/13/21 Unknown History [employer] SECTION Physical Exam Vitals Vital signs: Temp Pulse Resp BP Pulse Ox O2 Del Method 98.1 F 97 20 116/91 H 96 Room Air 08/01/22 10:30 08/01/22 10:30 08/01/22 10:30 08/01/22 10:30 08/01/22 10:30 08/01/22 10:30 BMI result Body Mass Index 23.7 Constitutional General Appearance: Healthy appearing, Well-nourished and Well-developed Psychiatric Mood and Affect: active and alert, normal mood and normal affect Skin Appearance: No rashes and No lesions Lungs Respiratory Effort: No intercostal retractions Auscultation: Clear to auscultation Cardiovascular Auscultation: RRR Abdomen Auscultation/Inspection/Palpation: Normal bowel sounds, Soft, Non-distended and No tenderness Female Genitalia (Pelvic) Vagina: Nontender Cervix: Grossly normal Uterus: Normal size Adnexa/Parametria: Adnexal Tenderness: None and Adnexal Mass: None Additional Comments: No evidence of active bleeding [employer] SECTION - Results Labs 08/01/22 11:00 08/01/22 10:59 Labs: Short CBC 08/01/22 Range/Units 11:00 WBC 5.9 (4.8-10.8) X10*3/uL Hgb 15.0 (12.0-16.0) g/dl Hct 43.4 (37.0-47.0) % Plt Count 238 (160-400) X10*3/uL BMP 08/01/22 10:59 Sodium 139 Potassium 3.7 Chloride 105 Carbon Dioxide 27 BUN 7 L Creatinine 0.84 Calcium 9.6 Liver Function 08/01/22 Range/Units 10:59 Total Bilirubin 0.9 (0.0-1.0) mg/dL AST 21 (5-31) U/L ALT 19 (0-31) U/L Alkaline Phosphatase 74 (39-117) U/L Albumin 4.4 (3.5-5.0) g/dL Antibody Screen Antibody Screen NEGATIVE 08/01/22 10:59 Assessment and Plan (1) Abnormal uterine bleeding (AUB): Status: Acute 12:01pm recommended UPT and pelvic ultrasound will see the patient after 14:30 GC and chlamydia with BV panel collected. Ultrasound still pending Discussed with the patient the results of the work up done in the emergency, ultrasound results still pending and options of treatment including control pills , Mirena IUD, cyclic Provera. All pros, cons, risks and benefits if each option was discussed with the patient and the patient decided to go ahead with [facility] so a more detailed discussion re: control pills including mechanism of action, benefits (regular menses, less dysmenorrhea, less risk of ovarian cancer, ...), risks ( DVT, PE, Strokes, VT, ? increased breast ca, others). I recommend Desogen 1 tablet p.o. q.d. 28 days cyclically for 3 months . Instructions were given to use a back- up method for contraception x 1st 2 weeks, and to schedule a 2 week office follow-up appointment (2) Complex ovarian cyst: Status: Acute Will check the results of the pelvic ultrasound as an outpatient follow-up and to previous ultrasound finding and treat accordingly Time Spent With Patient Time: Total time managing care of this patient today ____ minutes.
[2022-08-01 12:52] LABS: HCG Quantitative < 2 mIU/mL
[2022-08-01 13:46] LABS: Appearance Urine Cloudy; Color Urine RED; Glucose Urine UA Negative (Negative); Leukocyte Esterase Urine Trace (Negative); Nitrite Urine Positive (Negative); PH 5.5 (5.0-9.0); Specific Gravity - Urine 1.015 (1.005-1.025); UMIC TRIGGER UACC YES; Urine Blood Large (3+) (Negative); Urine Ketones 40 mg/dL (Negative); Urine Protein 30 (1+) mg/dL (Neg-Trace)
[2022-08-01 14:00] LABS: Bacteria Urine 1+ (None Seen); Hyaline Casts Urine 0-2 /LPF (0-2); RBC Urine >20 /HPF (0-2); UACC Culture Trigger YES
[2022-08-01 15:40] VITALS: BP 121/79; PULSE 72; RESP 18; O2SAT 100
[2022-08-01 16:33] LABS: CT PCR NOT DETECTED (Not Detect.); NG PCR NOT DETECTED (Not Detect.)
[2022-08-02 10:02] LABS: BV Int Neg Control Negative (Negative); BV Int Pos Control Positive (Positive)
== END 2022-08-01 15:45 | disposition home or self-care (01) ==
PROVIDERS: Physician Assistant; Physician Assistant Medical; Emergency Provider Emergency Medicine
DX: N83.299 Other ovarian cyst, unspecified side (principal); N93.9 Abnormal uterine and vaginal bleeding, unspecified; N93.8 Other specified abnormal uterine and vaginal bleeding; Z79.899 Other long term (current) drug therapy
CPT/HCPCS: 0353U; 36415; 76830; 76856; 80053; 81001; 83735; 84702; 85025; 85610; 85730; 86850; 86900; 86901; 87086; 87480; 87510; 87660; 96360; 96361; 99284

== ENCOUNTER 2022-08-13 10:39 | Outpatient (REF) | payer OTHER, MEDICAID, SELFPAY ==
--- NOTE | ~2022-08-13 | US_ITS ---
EXAMINATION: US PELVIS CLINICAL INFORMATION: Ovarian cyst. LMP 07/18/2022 COMPARISON: 08/01/2022 TECHNIQUE: Ultrasound of the pelvis is performed using both transabdominal and transvaginal transducers along with Doppler. Transvaginal imaging is performed due to inadequate visualization transabdominally. FINDINGS: Uterus: The uterus is anteverted and measures 8.6 x 3.3 x 4.8 cm. Cervical nabothian cysts are present. The double wall endometrial thickness is 8 mm. The uterus is smooth in contour and has normal myometrial echogenicity. No visible fibroid. Adnexa: Both ovaries are visualized. There is normal color flow to the adnexa. There is no pelvic ascites or fluid collection. Right ovary measures 4.6 x 2.4 x 2.0 cm. Left ovary measures 4.3 x 3.2 x 1.8 cm. US/US pelvic and transvaginal IMPRESSION: Unremarkable pelvic ultrasound.
== END 2022-08-13 10:40 | disposition home or self-care (01) ==
LOC: HO.US 10:39
PROVIDERS: Visit Provider Obstetrics & Gynecology
DX: N83.299 Other ovarian cyst, unspecified side (principal)
CPT/HCPCS: 76830; 76856

== ENCOUNTER 2022-08-21 03:57 | Emergency (ER) | payer OTHER, MEDICAID, SELFPAY ==
[2022-08-21 04:10] VITALS: BP 122/76; PULSE 60; RESP 20; TEMP 36.1; O2SAT 99; BMI 23.7
[2022-08-21 04:16] VITALS: BP 122/87; PULSE 63; RESP 18; TEMP 37; O2SAT 99
[2022-08-21 04:29] LABS: Hemoglobin 13.5 g/dl (12.0-16.0); Mean Corpuscular HGB Conc 34.6 g/dl (31.0-35.0); Mean Corpuscular Volume 89.4 fL (80.0-98.0); Mean Platelet Volume 10.2 fL (9.4-12.3); Platelet Count 223 X10*3/uL (160-400); Red Blood Count 4.36 X10*6/uL (4.20-5.50); Red Cell Distribution Width 12.6 % (11.0-16.0); White Blood Count 5.1 X10*3/uL (4.8-10.8)
[2022-08-21 04:45] LABS: Alanine Aminotransferase 25 U/L (0-31); Alkaline Phosphatase 59 U/L (39-117); Anion Gap 12 (12-20); Aspartate Amino Transferase 18 U/L (5-31); Bilirubin Direct 0.2 mg/dL (0.0-0.5); Bilirubin Total 0.7 mg/dL (0.0-1.0); Blood Urea Nitrogen 8 mg/dL (9-16); Calcium 9.4 mg/dL (8.4-10.2); Carbon Dioxide 25 mmol/L (22-29); Chloride 107 mmol/L (96-108); Creatinine Clr Calc Pharmacy 107.9; Estimated Glomerular Filt Rate > 60; Glucose Random 102 mg/dL (60-115); Lipase 16 U/L (8-78); Potassium 3.9 mmol/L (3.3-5.1); Sodium 140 mmol/L (135-145); Total Protein 7.8 g/dL (6.5-8.0)
--- NOTE | 2022-08-21 04:48 | ED_ITS ---
HPI - Abdominal Pain General Chief Complaint: Abdominal Pain Stated Complaint: abd pain Time Seen by Provider: 08/21/22 04:40 Source: patient Mode of arrival: ambulatory Limitations: no limitations History of Present Illness HPI narrative: Patient otherwise healthy noticed pain in epigastric and left upper quadrant area since 21:30 with nausea vomited 2 times. No fever no chills no urinary symptoms normal bowel movements no other family member sick Related Data Previous Rx's Medication Instructions Recorded desogestrel 0.15 mg-ethinyl 1 tab PO DAILY #28 tabs 08/01/22 estradiol 0.03 mg tablet ondansetron 4 mg disintegrating 4 mg PO Q6-8H PRN nausea and 08/21/22 tablet vomiting #7 tabs Allergies Allergy/AdvReac Type Severity Reaction Status Date / Time No Known Allergies Allergy Verified 07/26/22 12:47 Review of Systems Review of Systems Yes all other systems are reviewed and are negative REPLACED BY [facility] Past Medical History Medical History ASCUS with positive high risk HPV cervical PRETTY I (cervical intraepithelial neoplasia I) Surgical History History of surgery on arm Family History Family History Father High cholesterol Hypertension Mother Alive and well Maternal Grandmother Cancer Sister Cancer Social History Social History Alcohol intake: never Smoked in Last 30 Days: No Use of substances other than those prescribed or required for medical reasons: No Advance Directives: No Advance Directives Information Provided: No Patient : No Sexual orientation: Straight/Heterosexual Gender identity: Female Physical Exam ED Vital Signs: Vital Signs - 24 hr 08/21/22 04:10 08/21/22 04:16 Temperature 97 F 98.6 F Pulse Rate 60 63 Respiratory Rate 20 18 Blood Pressure 122/76 122/87 Pulse Oximetry 99 99 Oxygen Delivery Method Room Air Room Air BMI result Body Mass Index 23.7 Appearance: Alert. Oriented X3. No acute distress. Eyes: PERRLA, No Nystagmus ENT: Pharynx normal. Oral Mucosa moist Neck: Normal inspection. Neck supple. CVS: Normal heart rate and rhythm. Pulses normal. Respiratory: No respiratory distress. Equal air entry bilateral, no wheezing/ rales/rhonchi Abdomen: Soft mild tenderness left upper quadrant and epigastric area no tenderness in right upper quadrant Fisher sign negative Bowel sounds are present, no mass palpable, no CVA tenderness Skin: Skin warm and dry. Normal skin color. Normal skin turgor. Extremities: No lower extremity edema. No calf tenderness Neuro: Oriented X 3. No motor deficit. Medical Decision Making Medical Decision Making [facility] Narrative: Patient with stable labs likely gastroenteritis viral improved after Zofran and tramadol discharge patient home patient taking p.o. fluids UA showed blood patient on her menstrual period Lab Data [facility] Lab Attestation statement: I reviewed the patient's lab results. 08/21/22 04:25 08/21/22 04:25 Labs: Lab Results 08/21/22 08/21/22 08/21/22 Range/Units 04:25 04:25 06:16 WBC 5.1 (4.8-10.8) X10*3/uL RBC 4.36 (4.20-5.50) X10*6/uL Hgb 13.5 (12.0-16.0) g/dl Hct 39.0 (37.0-47.0) % MCV 89.4 (80.0-98.0) fL MCH 31.0 (27.0-33.0) pg MCHC 34.6 (31.0-35.0) g/dl RDW 12.6 (11.0-16.0) % Plt Count 223 (160-400) X10*3/uL MPV 10.2 (9.4-12.3) fL Absolute Nucleated RBC 0.000 (0.0-0.012) X10*3/uL Nucleated RBC % (auto) 0.0 (0.0-0.2) /100WBC Sodium 140 (135-145) mmol/L Potassium 3.9 (3.3-5.1) mmol/L Chloride 107 (96-108) mmol/L Carbon Dioxide 25 (22-29) mmol/L Anion Gap 12 (12-20) BUN 8 L (9-16) mg/dL Creatinine 0.86 (0.5-1.4) mg/dL Estim Creat Clear Calc 107.9 Estimated GFR > 60 Random Glucose 102 (60-115) mg/dL Calcium 9.4 (8.4-10.2) mg/dL Total Bilirubin 0.7 (0.0-1.0) mg/dL Direct Bilirubin 0.2 (0.0-0.5) mg/dL AST 18 (5-31) U/L ALT 25 (0-31) U/L Alkaline Phosphatase 59 (39-117) U/L Total Protein 7.8 (6.5-8.0) g/dL Albumin 4.0 (3.5-5.0) g/dL Lipase 16 (8-78) U/L Urine Color Red A Urine Appearance Turbid Urine pH 5.5 (5.0-9.0) Ur Specific [place] >= 1.030 H (1.005-1.025) Urine Protein 100 (2+) H (Neg-Trace) mg/dL Urine Glucose (UA) Negative (Negative) mg/dL Urine Ketones Negative (Negative) mg/dL Urine Blood Large (3+) H (Negative) Urine Nitrite Negative (Negative) Ur Leukocyte Esterase Small (1+) H (Negative) Urine RBC >20 H (0-2) /HPF Urine WBC 11-20 H (0-5) /HPF Ur Squamous Epith Cells 6-10 (0-2) /HPF Urine Bacteria 2+ (None Seen) Hyaline Casts 0-2 (0-2) /LPF Urine Test (NEGATIVE) 08/21/22 Range/Units 06:16 WBC (4.8-10.8) X10*3/uL RBC (4.20-5.50) X10*6/uL Hgb (12.0-16.0) g/dl Hct (37.0-47.0) % MCV (80.0-98.0) fL MCH (27.0-33.0) pg MCHC (31.0-35.0) g/dl RDW (11.0-16.0) % Plt Count (160-400) X10*3/uL MPV (9.4-12.3) fL Absolute Nucleated RBC (0.0-0.012) X10*3/uL Nucleated RBC % (auto) (0.0-0.2) /100WBC Sodium (135-145) mmol/L Potassium (3.3-5.1) mmol/L Chloride (96-108) mmol/L Carbon Dioxide (22-29) mmol/L Anion Gap (12-20) BUN (9-16) mg/dL Creatinine (0.5-1.4) mg/dL Estim Creat Clear Calc Estimated GFR Random Glucose (60-115) mg/dL Calcium (8.4-10.2) mg/dL Total Bilirubin (0.0-1.0) mg/dL Direct Bilirubin (0.0-0.5) mg/dL AST (5-31) U/L ALT (0-31) U/L Alkaline Phosphatase (39-117) U/L Total Protein (6.5-8.0) g/dL Albumin (3.5-5.0) g/dL Lipase (8-78) U/L Urine Color Urine Appearance Urine pH (5.0-9.0) Ur Specific [place] (1.005-1.025) Urine Protein (Neg-Trace) mg/dL Urine Glucose (UA) (Negative) mg/dL Urine Ketones (Negative) mg/dL Urine Blood (Negative) Urine Nitrite (Negative) Ur Leukocyte Esterase (Negative) Urine RBC (0-2) /HPF Urine WBC (0-5) /HPF Ur Squamous Epith Cells (0-2) /HPF Urine Bacteria (None Seen) Hyaline Casts (0-2) /LPF Urine Test NEGATIVE (NEGATIVE) Medications Administered Discontinued Medications Generic Name Dose Route Start Last Admin Trade Name Freq PRN Reason Stop Dose Admin Dicyclomine HCl 20 mg 08/21/22 04:48 08/21/22 04:53 Dicyclomine Hcl 10 Mg Capsule PO 08/21/22 04:49 20 mg ONCE ONE Administration Ondansetron HCl 4 mg 08/21/22 04:48 08/21/22 04:53 Ondansetron Odt 4 Mg Tab.Rapdis TRANSLINGU 08/21/22 04:49 4 mg ONCE ONE Administration Tramadol HCl 50 mg 08/21/22 05:35 08/21/22 05:48 Tramadol Hcl 50 Mg Tablet PO 08/21/22 05:36 50 mg ONCE ONE Administration Discharge Plan Discharge Clinical Impression: Gastroenteritis Patient Disposition: Home, Self-Care Instructions: Gastroenteritis (ED) Additional Instructions: Drink plenty of fluid Medicine for nausea as prescribed Follow with PCP if not better Prescriptions: New ondansetron 4 mg tablet,disintegrating 4 mg PO Q6-8H PRN (Reason: nausea and vomiting) Qty: 7 0RF No Action desogestrel-ethinyl estradiol 0.15-0.03 mg tablet 1 tab PO DAILY Qty: 28 2RF
== END 2022-08-21 07:00 | disposition home or self-care (01) ==
PROVIDERS: Emergency Provider Internal Medicine
DX: K52.9 Noninfective gastroenteritis and colitis, unspecified (principal); N39.0 Urinary tract infection, site not specified; B96.20 Unspecified Escherichia coli [E. coli] as the cause of diseases classified elsewhere; Z79.899 Other long term (current) drug therapy
CPT/HCPCS: 36415; 80053; 81001; 81025; 82248; 83690; 85027; 87086; 87088; 87186; 99284

== ENCOUNTER 2022-08-27 10:24 | Outpatient (AMB) | payer OTHER, MEDICAID, SELFPAY ==
--- NOTE | 2022-08-27 10:25 | MHC.OFFVIS ---
Intake Vital Signs 08/27/22 10:28 Height 5 ft 11 in Weight 169 lb 12.095 oz BMI 23.7 BP 118/66 Intake Visit Reasons: ultrasound follow up Sourcing Associate Required: No Information Interpreted: non-clinical & clinical Accompanied by: Self / Same As Patient Allergies No Known Allergies Allergy (Verified 08/27/22 10:28) Is last menstrual period known: Yes Last menstrual period: 08/18/22 HPI HPI Comments History of Present Illness Details The patient is presenting for ultrasound follow-up. The patient went to the emergency room few weeks ago for abnormal uterine bleeding, the following workup was done it CBC, TSH, test, GC and chlamydia all normal , pelvic ultrasound showed a complex ovarian cyst. Repeat ultrasound done on 08/14/2015 was unremarkable with no evidence of complex ovarian cyst. The patient was this prescribed Desogen for abnormal uterine bleeding since then her menstrual cycle has been regular with no concerns PFSH Medical History ASCUS with positive high risk HPV cervical PRETTY I (cervical intraepithelial neoplasia I) Surgical History History of surgery on arm Family History Father High cholesterol Hypertension Mother Alive and well Maternal Grandmother Cancer Sister Cancer Social History Alcohol intake: never Sexual orientation: Straight/Heterosexual Gender identity: Female Female Reproductive History Menstrual Age of Menarche: 12 Date of last menstrual period: 08/18/22 Review of Systems Const All systems reviewed & are unremarkable except as noted in HPI and below Reports as per HPI and Reports no additional complaints GI Reports no additional complaints Reports no additional complaints Physical Exam Vital Signs: Last Vital Signs BP 118/66 08/27/22 10:28 BMI result Body Mass Index 23.7 Assessment & Plan Assessment & Plan (1) Complex ovarian cyst: Code(s): N83.299 - Other ovarian cyst, unspecified side Plan: Discussed with the patient ultrasound findings showing the previously identified complex cyst has resolved. The patient was instructed to call if symptoms recur. All questions were answered the patient verbalized understanding. (2) Abnormal uterine bleeding (AUB): Code(s): N93.9 - Abnormal uterine and vaginal bleeding, unspecified Plan: Instructions given the patient to continue control pills, Desogen control pills refilled will follow-up in 3 months. All questions answered, the patient verbalized understanding Medications: Refilled desogestrel-ethinyl estradiol 0.15-0.03 mg 1 tab PO DAILY 28 tabs 2RF Coding Level of Care Code Est Pt Level 3 (27200) Diagnoses Complex ovarian cyst N83.299 Abnormal uterine bleeding (AUB) N93.9
[2022-08-27 10:28] VITALS: BP 118/66; BMI 23.7
== END 2022-08-27 10:45 | disposition home or self-care (01) ==
LOC: HO.HWS 10:24
PROVIDERS: PCP Internal Medicine; Visit Provider Obstetrics & Gynecology
DX: N83.299 Other ovarian cyst, unspecified side (principal); N93.9 Abnormal uterine and vaginal bleeding, unspecified
CPT/HCPCS: 99213

== ENCOUNTER → 2022-08-27 10:24 | Outpatient (BNVA) | payer OTHER, MEDICAID, SELFPAY | PROVIDERS: PCP Internal Medicine; Visit Provider Obstetrics & Gynecology ==

== ENCOUNTER 2022-11-01 02:34 | Emergency (ER) | payer OTHER, SELFPAY ==
--- NOTE | ~2022-11-01 | XR_ITS ---
EXAMINATION: XR CHEST CLINICAL INFORMATION: Chest pain COMPARISON: None available. TECHNIQUE: Frontal view of the chest was obtained. FINDINGS: The cardiomediastinal silhouette is normal. There is no focal lung consolidation or pleural effusion. The bony structures and soft tissues are unremarkable. XR/XR chest 1V IMPRESSION: No active cardiopulmonary disease.
--- NOTE | 2022-11-01 02:36 | ECG_ITS ---
Test Reason : CHEST PAIN Blood Pressure : / mmHG Vent. Rate : 066 BPM Atrial Rate : 066 BPM P-R Int : 156 ms QRS Dur : 080 ms QT Int : 384 ms P-R-T Axes : 044 044 033 degrees QTc Int : 402 ms Normal sinus rhythm Normal ECG When compared with ECG of 07-MAY-2020 00:16, No significant change was found Referred By: Generic ED Physician Electronically Signed By:GUERDA NAPOLES
[2022-11-01 02:50] VITALS: BP 131/89; PULSE 64; RESP 13; TEMP 36.6; O2SAT 99; BMI 24.0
[2022-11-01 02:52] LABS: MANUAL DIFF FLAG NO
[2022-11-01 02:53] VITALS: PULSE 64
[2022-11-01 02:53] LABS: Basophils Absolute Auto 0.1 X10*3/uL (0.0-0.2); Eosinophils Absolute Auto 0.2 X10*3/uL (0.0-0.4); Eosinophils Percent Auto 2.8 % (0-4); Hematocrit 39.9 % (37.0-47.0); Hemoglobin 13.8 g/dl (12.0-16.0); Imm Gran Abs Auto 0.01 X10*3/uL (0.00-0.03); Imm Gran Pct Auto 0.1 % (0.0-0.4); Lymphocytes Absolute Auto 2.4 X10*3/uL (1.2-4.9); Lymphocytes Percent Auto 33.8 % (20-40); Mean Corpuscular HGB Conc 34.6 g/dl (31.0-35.0); Mean Corpuscular Hemoglobin 30.3 pg (27.0-33.0); Mean Corpuscular Volume 87.7 fL (80.0-98.0); Mean Platelet Volume 10.2 fL (9.4-12.3); Monocytes Absolute Auto 0.5 X10*3/uL (0.1-1.2); Monocytes Percent Auto 7.1 % (2-11); Neutrophils Absolute Auto 3.9 x10*3/uL (2.0-8.3); Neutrophils Percent Auto 55.2 % (45-73); Platelet Count 269 X10*3/uL (160-400); Red Blood Count 4.55 X10*6/uL (4.20-5.50); Red Cell Distribution Width 12.3 % (11.0-16.0); White Blood Count 7.1 X10*3/uL (4.8-10.8)
--- NOTE | 2022-11-01 02:56 | ED.CHESTPAIN ---
HPI - Chest Pain General Chief Complaint: Chest Pain Stated Complaint: Chest Pain/ Left arm numbness Time Seen by Provider: 11/01/22 02:55 Source: patient Mode of arrival: ambulatory Limitations: no limitations History of Present Illness HPI narrative: Patient with significant past medical history notice pain in the left side of the chest since 19:00 last night increased on palpation taking deep breath no cough also feels slight short of breath although feeling tingling sensation in the left arm Related Data Previous Rx's Medication Instructions Recorded ondansetron 4 mg disintegrating 4 mg PO Q6-8H PRN nausea and 08/21/22 tablet vomiting #7 tabs cefdinir 300 mg capsule 300 mg PO BID 7 days #14 caps 08/25/22 desogestrel 0.15 mg-ethinyl 1 tab PO DAILY #28 tabs 10/21/22 estradiol 0.03 mg tablet ibuprofen 600 mg tablet 600 mg PO Q6H PRN fever or pain 11/01/22 #30 tabs Allergies Allergy/AdvReac Type Severity Reaction Status Date / Time No Known Allergies Allergy Verified 08/27/22 10:28 [facility] Past Medical History Medical History ASCUS with positive high risk HPV cervical PRETTY I (cervical intraepithelial neoplasia I) Surgical History History of surgery on arm Family History Family History Father High cholesterol Hypertension Mother Alive and well Maternal Grandmother Cancer Sister Cancer Social History Social History Alcohol intake: current Alcohol intake frequency: holidays/special occasions only Smoked in Last 30 Days: No Use of substances other than those prescribed or required for medical reasons: No Advance Directives: No Advance Directives Information Provided: No Patient : No Sexual orientation: Straight/Heterosexual Gender identity: Female Physical Exam Vital Signs: Vital Signs: Last Vital Signs Temp 98.3 F 11/01/22 04:33 Pulse 69 11/01/22 04:33 Resp 16 11/01/22 04:33 BP 112/65 11/01/22 04:33 Pulse Ox 99 11/01/22 04:33 O2 Del Method Room Air 11/01/22 04:33 BMI result Body Mass Index 24.0 Appearance: Alert. Oriented X3. No acute distress. Eyes: PERRLA, No Nystagmus ENT: Pharynx normal. Oral Mucosa moist Neck: Normal inspection. Neck supple. CVS: Normal heart rate and rhythm. Tenderness left 2nd intercostal space, Pulses normal. Respiratory: No respiratory distress. Equal air entry bilateral, no wheezing/rales/rhonchi Abdomen: Soft and nontender. Bowel sounds are present, Skin: Skin warm and dry. Normal skin color. Normal skin turgor. Extremities: No lower extremity edema. No calf tenderness Neuro: Oriented X 3. Medical Decision Making Medical Decision Making [facility] Narrative: Patient atypical chest pain heart score of 0 tenderness at the 2nd intercostal space on the left side high sensitive troponin negative D-dimer negative will discharge patient home on ibuprofen Lab Data [facility] Lab Attestation statement: I reviewed the patient's lab results. 11/01/22 02:46 11/01/22 02:46 Labs: Lab Results 11/01/22 11/01/22 Range/Units 02:46 03:19 WBC 7.1 (4.8-10.8) X10*3/uL RBC 4.55 (4.20-5.50) X10*6/uL Hgb 13.8 (12.0-16.0) g/dl Hct 39.9 (37.0-47.0) % MCV 87.7 (80.0-98.0) fL MCH 30.3 (27.0-33.0) pg MCHC 34.6 (31.0-35.0) g/dl RDW 12.3 (11.0-16.0) % Plt Count 269 (160-400) X10*3/uL MPV 10.2 (9.4-12.3) fL Immature Gran % (Auto) 0.1 (0.0-0.4) % Neut % (Auto) 55.2 (45-73) % Lymph % (Auto) 33.8 (20-40) % [place] % (Auto) 7.1 (2-11) % Eos % (Auto) 2.8 (0-4) % Baso % (Auto) 1.0 (0-2) % Lymph # (Auto) 2.4 (1.2-4.9) X10*3/uL [place] # (Auto) 0.5 (0.1-1.2) X10*3/uL Eos # (Auto) 0.2 (0.0-0.4) X10*3/uL Baso # (Auto) 0.1 (0.0-0.2) X10*3/uL Abs Immat Gran (auto) 0.01 (0.00-0.03) X10*3/uL Absolute Neuts (auto) 3.9 (2.0-8.3) x10*3/uL Absolute Nucleated RBC 0.000 (0.0-0.012) X10*3/uL Nucleated RBC % (auto) 0.0 (0.0-0.2) /100WBC D-Dimer High Sensitivty < 150 NG/ML Sodium 138 (135-145) mmol/L Potassium 3.6 (3.3-5.1) mmol/L Chloride 107 (96-108) mmol/L Carbon Dioxide 24 (22-29) mmol/L Anion Gap 11 L (12-20) BUN 10 (9-16) mg/dL Creatinine 0.88 (0.5-1.4) mg/dL Estim Creat Clear Calc 105.4 Estimated GFR > 60 Random Glucose 88 (60-115) mg/dL Calcium 9.0 (8.4-10.2) mg/dL Troponin I High Sens < 2.7 (<3.5-17.0) ng/L Independent Interpretation I performed an independent interpretation of an: EKG Interpretation: Normal sinus rhythm heart rate 66 normal interval normal axis no acute ST-T no acute ischemia Discharge Plan Discharge Clinical Impression: Costalchondritis Patient Disposition: Home, Self-Care Instructions: Costochondritis (ED) Additional Instructions: Your chest pain is from inflammation of the cartilage Take ibuprofen as prescribed and follow up with PCP Prescriptions: New ibuprofen 600 mg tablet 600 mg PO Q6H PRN (Reason: fever or pain) Qty: 30 0RF No Action desogestrel-ethinyl estradiol 0.15-0.03 mg tablet 1 tab PO DAILY Qty: 28 2RF ondansetron 4 mg tablet,disintegrating 4 mg PO Q6-8H PRN (Reason: nausea and vomiting) Qty: 7 0RF cefdinir 300 mg capsule 300 mg PO BID 7 Days Qty: 14 0RF
[2022-11-01 03:05] LABS: Anion Gap 11 (12-20); Blood Urea Nitrogen 10 mg/dL (9-16); Carbon Dioxide 24 mmol/L (22-29); Chloride 107 mmol/L (96-108); Creatinine Clr Calc Pharmacy 105.4; Estimated Glomerular Filt Rate > 60; Glucose Random 88 mg/dL (60-115); Potassium 3.6 mmol/L (3.3-5.1); Sodium 138 mmol/L (135-145)
[2022-11-01 03:18] LABS: Troponin-I High Sensitivity < 2.7 ng/L (<3.5-17.0)
[2022-11-01 03:53] LABS: D Dimer High Sensitivity < 150 NG/ML
[2022-11-01 04:33] VITALS: BP 112/65; PULSE 69; RESP 16; TEMP 36.8; O2SAT 99
[2022-11-01 04:42] VITALS: BP 112/68; PULSE 76; RESP 18; TEMP 36.8; O2SAT 99
== END 2022-11-01 04:49 | disposition home or self-care (01) ==
PROVIDERS: Emergency Provider Internal Medicine; PCP Internal Medicine
DX: M94.0 Chondrocostal junction syndrome [Tietze] (principal); R06.02 Shortness of breath
CPT/HCPCS: 36415; 71045; 80048; 84484; 85025; 85379; 93005; 99284; 99285

== ENCOUNTER 2022-12-22 08:44 | Outpatient (AMB) | payer OTHER, SELFPAY ==
--- NOTE | 2022-12-22 08:46 | MHC.OFFVIS ---
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 [facility] Medical History ASCUS with positive high risk HPV cervical PRETTY I (cervical intraepithelial neoplasia I) Surgical History History of surgery on arm Family History Father High cholesterol Hypertension Mother Alive and well Maternal Grandmother Cancer Sister Cancer Social History Alcohol intake: current Alcohol intake frequency: holidays/special occasions only Sexual orientation: Straight/Heterosexual Gender identity: Female Female Reproductive History Menstrual Age of Menarche: 12 Date of last menstrual period: 12/11/22 Review of Systems Const All systems reviewed & are unremarkable except as noted in HPI and below Reports as per HPI and Reports no additional complaints GI Reports no additional complaints Reports no additional complaints Physical Exam Vital Signs: Last Vital Signs BP 110/68 12/22/22 08:49 BMI result Body Mass Index 24.0 Assessment & Plan Assessment & Plan (1) Contraceptive management: Code(s): Z30.9 - Encounter for contraceptive management, unspecified Plan: control pills refilled, instructions given the patient to schedule annual exam within 6 months. All questions answered understanding Medications: Refilled desogestrel-ethinyl estradiol 0.15-0.03 mg 1 tab PO DAILY 28 tabs 6RF Coding Level of Care Code Est Pt Level 3 (20678) Diagnoses Contraceptive management Z30.9
[2022-12-22 08:49] VITALS: BP 110/68; BMI 24.0
== END 2022-12-22 09:02 | disposition home or self-care (01) ==
PROVIDERS: PCP Internal Medicine; Visit Provider Obstetrics & Gynecology
DX: Z30.9 Encounter for contraceptive management, unspecified (principal)
CPT/HCPCS: 99213

== ENCOUNTER → 2022-12-22 08:44 | Outpatient (BNVA) | payer OTHER, SELFPAY | PROVIDERS: PCP Internal Medicine; Visit Provider Obstetrics & Gynecology ==

== ENCOUNTER 2023-03-20 09:50 | Outpatient (REF) | payer OTHER, SELFPAY | END 2023-03-20 09:51 | disposition home or self-care (01) | LOC: HO.LAB 09:50 | PROVIDERS: PCP Internal Medicine; Visit Provider Obstetrics & Gynecology | DX: N91.2 Amenorrhea, unspecified (principal) | CPT/HCPCS: 36415; 84702 ==

== ENCOUNTER 2023-03-23 07:29 | Outpatient (REF) | payer OTHER, SELFPAY ==
--- NOTE | ~2023-03-23 | US_ITS ---
EXAMINATION: US OBSTETRICAL ULTRASOUND CLINICAL INFORMATION: Elevated hCG COMPARISON: 08/13/2022 LMP: 01/11/2023. Gestational age by maternal dates is 10 weeks 3 days. Estimated date of delivery by maternal dates is 10/16/2023. TECHNIQUE: Transabdominal FINDINGS: There is a single intrauterine gestational sac with visible yolk sac, embryo/fetus, and cardiac activity. There is no significant subchorionic hemorrhage or hematoma. HR: 133 beats per minute. CRL (crown rump length): 0.7 cm (6 weeks 5 days +/- 4 days). ROBB (estimated date of delivery): 11/11/2023 +/- 4 days. There is small subchorionic hemorrhage MATERNAL ADNEXA: The right maternal ovary measures 2.0 x 1.0 x 1.5 cm. The left maternal ovary measures 2.6 x 1.5 x 1.5 cm. There are no cysts bilaterally There is no significant maternal adnexal mass. No maternal pelvic ascites. US/US OB <= 14 weeks fetus IMPRESSION: 1. Single intrauterine gestation with ultrasound gestational age of 6 weeks 5 days +/- 4 days. 2. Estimated date of delivery is 11/11/2023 +/- 4 days. 3. No maternal adnexal mass or pelvic ascites.
== END 2023-03-23 07:30 | disposition home or self-care (01) ==
LOC: HO.US 07:29
PROVIDERS: PCP Internal Medicine; Visit Provider Obstetrics & Gynecology
DX: Z34.91 Encounter for supervision of normal pregnancy, unspecified, first trimester (principal); Z3A.10 10 weeks gestation of pregnancy; R79.89 Other specified abnormal findings of blood chemistry
CPT/HCPCS: 36415; 76801; 84702

== ENCOUNTER 2023-03-23 10:55 | Outpatient (AMB) | payer OTHER, SELFPAY ==
[2023-03-23 11:10] VITALS: BP 120/70; BMI 23.8
--- NOTE | 2023-03-23 11:10 | MHC.OFFVIS ---
Intake Vital Signs 03/23/23 11:10 Height 5 ft 11 in Weight 171 lb BMI 23.8 BP 120/70 Intake Visit Reasons: US/HCG follow up Allergies No Known Allergies Allergy (Verified 12/22/22 08:49) HPI HPI Comments History of Present Illness Details Presenting for follow-up hCG and OB ultrasound. The patient is doing well with no complaints, no pelvic cramping and or vaginal bleeding, no nausea or vomiting. HCG done on 03/20/2023 was 98,983 repeated on 03/23 was 138,405 Blood type O positive OB ultrasound done today showed the following: There is a single intrauterine gestational sac with visible yolk sac, embryo/fetus, and cardiac activity. There is no significant subchorionic hemorrhage or hematoma. HR: 133 beats per minute. CRL (crown rump length): 0.7 cm (6 weeks 5 days +/- 4 days). ROBB (estimated date of delivery): 11/11/2023 +/- 4 days. There is small subchorionic hemorrhage MATERNAL ADNEXA: The right maternal ovary measures 2.0 x 1.0 x 1.5 cm. The left maternal ovary measures 2.6 x 1.5 x 1.5 cm. There are no cysts bilaterally There is no significant maternal adnexal mass. No maternal pelvic ascites. [facility] Medical History ASCUS with positive high risk HPV cervical PRETTY I (cervical intraepithelial neoplasia I) Surgical History History of surgery on arm Family History Father High cholesterol Hypertension Mother Alive and well Maternal Grandmother Cancer Sister Cancer Social History Alcohol intake: current Alcohol intake frequency: holidays/special occasions only Sexual orientation: Straight/Heterosexual Gender identity: Female Female Reproductive History Menstrual Age of Menarche: 12 Review of Systems Const All systems reviewed & are unremarkable except as noted in HPI and below Reports as per HPI and Reports no additional complaints GI Reports no additional complaints Reports no additional complaints Physical Exam Vital Signs: Last Vital Signs BP 120/70 03/23/23 11:10 BMI result Body Mass Index 23.8 Assessment & Plan Assessment & Plan (1) Early stage of : Code(s): Z34.90 - Encounter for supervision of normal , unspecified, unspecified trimester Plan: Discussed with the patient the results of her hCG, rate of rise and OB ultrasound showing an IUP with live gestation. SAB warnings given to patient, she is to call or go to emergency room in case of pelvic cramping and or vaginal bleeding. vitamin 1 tablet p.o. q.d. Instructions given the patient to schedule 1st OB RN visits within 2 weeks. Coding Level of Care Code Est Pt Level 3 (01017) Diagnoses Early stage of Z34.90
== END 2023-03-23 13:19 | disposition home or self-care (01) ==
LOC: HO.HWS 10:55
PROVIDERS: PCP Internal Medicine; Visit Provider Obstetrics & Gynecology
DX: Z34.90 Encounter for supervision of normal pregnancy, unspecified, unspecified trimester (principal)
CPT/HCPCS: 99213

== ENCOUNTER 2023-04-08 10:03 | Outpatient (REF) | payer OTHER, SELFPAY ==
[2023-04-08 11:57] LABS: Hematocrit 41.8 % (37.0-47.0); Hemoglobin 14.9 g/dl (12.0-16.0); Mean Corpuscular HGB Conc 35.6 g/dl (31.0-35.0); Mean Corpuscular Hemoglobin 31.3 pg (27.0-33.0); Mean Corpuscular Volume 87.8 fL (80.0-98.0); Mean Platelet Volume 9.8 fL (9.4-12.3); Platelet Count 279 X10*3/uL (160-400); Red Blood Count 4.76 X10*6/uL (4.20-5.50); Red Cell Distribution Width 12.7 % (11.0-16.0); White Blood Count 10.7 X10*3/uL (4.8-10.8)
[2023-04-08 12:38] LABS: Amphetamine Screen Urine Not Detected (Not Detect); Barbiturates, Urine Not Detected (Not Detect); Benzodiazepines Screen Urine Not Detected (Not Detect); Cannabinoid Screen Urine Not Detected (Not Detect); Cocaine Screen Urine Not Detected (Not Detect); Fentanyl, urine Not Detected (Not Detect); Opiate Screen Urine Not Detected (Not Detect); Phencyclidine Screen Urine Not Detected (Not Detect)
[2023-04-08 12:44] LABS: HBsAGNum1 0.32 S/CO (0.00-0.99); HIV AB/AG Nonreactive (Nonreactive); HIV Num 1 0.06 S/CO (0.00-0.99); Hepatitis B Surface Antigen Negative (Negative); Syphilis Screen Nonreactive (Nonreactive); ~HepC Num1 0.13 S/CO (0.00-0.79); ~Hepatitis C Antibody Nonreactive (Nonreactive)
[2023-04-08 13:02] LABS: Sickle Cell Scr NEGATIVE (NEGATIVE)
[2023-04-09 20:59] LABS: Rubella IgG Antibody 1.58 Index; Varicella IgG Antibody <135.00 index
[2023-04-21 13:18] LABS: CF Ethnicity NG; Cystic Fibrosis NEGATIVE (NEGATIVE)
== END 2023-04-08 10:04 | disposition home or self-care (01) ==
LOC: HO.LAB 10:03
PROVIDERS: PCP Internal Medicine; Visit Provider Obstetrics & Gynecology
DX: Z34.91 Encounter for supervision of normal pregnancy, unspecified, first trimester (principal); R82.90 Unspecified abnormal findings in urine; Z3A.09 9 weeks gestation of pregnancy
CPT/HCPCS: 80307; 81220; 85027; 85660; 86762; 86780; 86787; 86803; 86850; 86900; 87086; 87340; 87389

== ENCOUNTER 2023-04-13 10:58 | Outpatient (AMB) | payer OTHER, SELFPAY ==
[2023-04-13 11:08] VITALS: BP 114/58; BMI 27.9
--- NOTE | 2023-04-13 11:08 | A.OFFVISPN_ITS ---
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 Operator Required: No Information Interpreted: non-clinical & clinical Forger Helper: Forger Helper Present (Daniella) Allergies No Known Allergies Allergy (Verified 04/13/23 11:19) Medication List - Last Reconciled 04/13/23 by Tatyana Ann CNM [id number] 3-fat com #1 27-1-300 mg caps PO Is last menstrual period known: Yes Post menopausal: No Patient : Yes PFSH Medical History ASCUS with positive high risk HPV cervical PRETTY I (cervical intraepithelial neoplasia I) Surgical History History of surgery on arm Family History (Updated 04/13/23 @ 11:20 by STEPHENIE Baer) Father High cholesterol Hypertension Mother Alive and well Maternal Grandmother Cancer Sister Cancer Paternal Grandmother Breast cancer Sister Breast cancer Social History Alcohol intake: current Alcohol intake frequency: holidays/special occasions only Patient : Yes Sexual orientation: Straight/Heterosexual Gender identity: Female Female Reproductive History Menstrual Age of Menarche: 12 Duration of menses: 6-7 days control method: none Total pregnancies: 1 Date of last pap smear: 04/23/22 (negative) History of abnormal pap smear: No History History 1 Elective abortions 0 Para 0 Spontaneous abortions 0 Hx # Term Pregnancies 0 Ectopic pregnancies 0 Hx # Pregnancies 0 Multiple births 0 Questionnaire History History : 1 [place] Depression [place] Depression Scale I have been able to laugh and see the funny side of things: As much as I always could I have looked forward with enjoyment to things: As much as I ever did I have blamed myself unnecessarily when things went wrong: No, never I have been anxious or worried for no reason: No, not at all I have felt scared of panicky for no very good reason at all: No, not at all Things have been getting on top of me: No, most of the time I have coped quite well I have been so unhappy that I have had difficulty sleeping: No, not at all I have felt sad or miserable: No, not at all I have been so unhappy that I have been crying: No, never The thought of harming myself has occurred to me: Never 1 PHQ Assessment Billing PHQ Assessment Tool: PHQ Assessment 69049 Visit ROBB Calculator Estimated Delivery Date Method Current WG Current Estimate 11/11/23 Ultrasound #1 9w 5d Other Estimates 10/19/23 LMP (Uncertain) 13w 0d Expected Delivery Route/Plan Vaginal Specific Issues/Plans HX ovarian cyst. OB Problem List: 27yr. old ? ? G1 ?P0 ? ? ?LMP: EDC: 11/11/23 ?by 03/23/23 u/s, (06/22)? ? ?Blood type: O pos Problem List: 1. Testing: Panorama/and or First Tri screen: will be getting week of 04/27/23.... ? ?risk NT scan: AFP: FAS: Glucose: early ? 28 wk glucose: ? CBC 1st Tri: ? 28 wk. CBC: GBS: Vaccinations: Flu: Covid: Tdap: Education/Services WIC: CBE: Breast feeding classes: Social Supports/Stressors: Living situation: Supports: Work/school: Works 3-4, 12 hour shifts per week at [employer] Transportation: Labor, and Concerns: Labor support: ? Sister & FOB? &Plan: Feeding Plans: Plans to nurse saw her sister nurse for year. control: OB Visit Log Initial Weight: 175 lb Date -?-?-?-?-?--?-?-?-?-?-?-?- EGA Weight Gest Week Fundal Ht Present FHR move Efface % Edema BP PrePreg We Weight GTT -?-?-?-?-?-?-?-?-?-?-?-?- Glucose LV Protein Blood Type 04/08/23 -?-?-?-?-?-?-?-?-?-?-?-?- 9w 0d 200 lb 8 oz (+25 lb 8 oz) 200 lb 8 oz -?-?-?-?-?-?-?-?-?-?-?-?- 04/13/23 -?-?-?-?-?-?-?-?-?-?-?-?- 9w 5d 200 lb (+25 lb) 9 160 114/58 200 lb -?-?-?-?-?-?-?-?-?-?-?-?- Notes Visit Date: 04/13/23 Last Updated by: Tatyana Ann CNM Patient is here for her 1st visit at 9 weeks and 5 days at the [facility]. She is accompanied by her sister Catina who is 5 years older than her. She said she was delivered by this CNM 12 years ago and May as present at that as well.. She has some questions about what is normal in the 1st trimester and has had met most of them addressed with the RN visit with a wheeze. She works at [employer] on a scheduled day shift. It was not a planned but she is happy and is involved with the father the baby and things are good she had some nausea and breast tenderness but is eating well she is not constipated but she does get gassy and burps a lot. She has had an ultrasound that confirmed her dating. She is planning on her sister breastfed for a year so she has a good coached available to her. She lives in [place] works in [place]. She already knows that she will be delivering at [facility]. She already has spoken with the nurse and knows that her insurance will not cover 1 particular test done at [facility] so she is going to have the NIPT done at [facility] and the form is available to be signed today. And I have signed it and given it to her it is to be drawn on the week of the and that is the day that she has her nuchal translucency ultrasound at [facility]. I did review her with her the options for care and delivery in the [place] including care with us and delivery at [facility] or if she chose to meet the team involved with her delivery she would need to actually transfer care to that practice. Her sister is recommending [facility] so they will discuss and decide amongst themselves. In the meantime we will continue to see her discussed food safety and normal changes in the she was size equals dates for somebody who is 5 ft 11 in and FHT was very clearly audible today. Her nipples julienne well and I discussed early latch and placement of the baby for anticipation. Discussed that we will see her every 4 weeks for now and future screening will be done as well for diabetes and anemia later on. Additionally discussed moderation in weight gain and eating healthy but not obsessing about it discussed that we watch for signs and symptoms of preeclampsia and other challenges in , and discussed reasons to call.. RTC 4 weeks. Visit Date: 04/08/23 Last Updated by: Rebecca Le LPN Anna is here today accompanied by her mother, for her OB nurse intake.. LMP 01/12/23 ROBB=10/21/23. ROBB by u/s on 03/23/23 =11/11/23. Pt is happy about the ,and FOB is involved. Discussed healthy food choices, more frequent smaller amounts of food, keep well hydrated with H2O. Pt is experiencing occasional nausea and vomiting. Advised to try to take her PNV at night, which may help with her nausea. 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 Discussed with pt NT u/s and will schedule at [facility]. Pt aware she will be delivering at [facility], and in the event she becomes high risk she would be transferred. Pt was informed we will get her scheduled for her OB Physical . labs discussed and pt sent to lab after visit. Discussed medications that are acceptable in , and given packet with information for her and her Partner to review. Discussed with Anna how to reach strong nitric operator MD after hours, and to go to [facility], for any ob emergency. Pt advised to call office for any questions or concerns. Results AMB Urinalysis, Automated UA Leukoctes 0 Sophia/uL Last Edit by STEPHENIE Baer on 04/13/23 12:12 UA Nitrite Negative Last Edit by STEPHENIE Baer on 04/13/23 12:12 UA Urobilinogen 0 mg/dL Last Edit by Daniella Gilbert STEPHENIE on 04/13/23 12:12 UA Protein 0 mg/dL Last Edit by Daniella Gilbert STEPHENIE on 04/13/23 12:12 UA pH 7 Last Edit by Daniella Gilbert STEPHENIE on 04/13/23 12:12 UA Blood 0 Carlos A/uL Last Edit by STEPHENIE Baer on 04/13/23 12:12 UA Specific [place] 1.015 Last Edit by Daniella Riosdro STEPHENIE on 04/13/23 12: 12 UA Ketone Negative Last Edit by Daniella Riosdro STEPHENIE on 04/13/23 12:12 UA Bilirubin 0 mg/dL Last Edit by Daniella Riosdro STEPHENIE on 04/13/23 12:12 UA Glucose 0 mg/dL Last Edit by Daniella Gilbert STEPHENIE on 04/13/23 12:12 Exam Const Other: Size equals dates equals 9+ weeks FHT was audible! Constitutional General: cooperative, healthy appearing, comfortable, no acute distress and well developed Nutritional Appearance: average body habitus and well nourished Constitutional Limitations: no limitations [facility] Head: normocephalic and other Teeth and gingiva: dentition normal and gingiva normal Neck Thyroid: Thyroid normal Chest Breast/axilla inspection: normal inspection of the breasts and Other (nipples julienne well) Breast/axilla palpation: normal palpation of the breasts and normal palpation of the axillae Resp Effort & Inspection: normal respiratory effort Auscultation: clear to auscultation bilaterally Cardio Heart sounds: S1 normal heart sound present and S2 normal heart sound present GI Inspection (GI): normal to inspection General Exam: Yes no CVA tenderness External Female Exam: normal external appearance Speculum exam - vagina: normal appearance of the vagina, normal discharge and other (normal appearance to vaginal secretions) Speculum Exam - Cervix: normal appearance of the cervix Bimanual exam- vagina & uterus: normal bimanual exam, uterine size normal (consistant w dating), consistency normal (consitent w gestational age), uterine mobility normal and uterine shape normal (c/w gestational age) Bimanual Exam- Adnexa, other: normal adnexae, no masses and normal (teaching re kegels done) Pelvic Support: normal (teaching re kegels done) OB/external & speculum: external exam normal Manual OB Exam: other (cervix =long/thick/closed/ and consistent w obstetric history) Coding Level of Care Code [place] Diagnoses Early stage of Z34.90 with uncertain dates in first trimester Z34.91 Assessment & Plan Assessment & Plan (1) Early stage of : Code(s): Z34.90 - Encounter for supervision of normal , unspecified, unspecified trimester Category: Medical (2) with uncertain dates in first trimester: Code(s): Z34.91 - Encounter for supervision of normal , unspecified, first trimester Category: Medical Orders: Orders Bacterial Vaginosis Panel Today Z11.3 - Encounter for screening for infections with a predominantly sexual mode of transmission CT NG by PCR Today Z11.3 - Encounter for screening for infections with a predominantly sexual mode of transmission AMB Urinalysis Automated Today Z34.90 - Encounter for supervision of normal preg tanya, unspecified, unspecified trimester
== END 2023-04-13 16:22 | disposition home or self-care (01) ==
LOC: HO.HWSM 10:58
PROVIDERS: PCP Internal Medicine; Visit Provider Advanced Practice Midwife
DX: Z34.90 Encounter for supervision of normal pregnancy, unspecified, unspecified trimester (principal); Z34.91 Encounter for supervision of normal pregnancy, unspecified, first trimester
CPT/HCPCS: 25942

== ENCOUNTER 2023-04-13 10:58 | Outpatient (REF) | payer OTHER, SELFPAY ==
[2023-04-14 11:33] LABS: CT PCR NOT DETECTED (Not Detect.); NG PCR NOT DETECTED (Not Detect.)
[2023-04-14 12:47] LABS: BV Int Neg Control Negative (Negative); BV Int Pos Control Positive (Positive)
== END 2023-04-13 10:59 | disposition home or self-care (01) ==
LOC: HO.LNP 10:58
PROVIDERS: PCP Internal Medicine; Visit Provider Advanced Practice Midwife
DX: Z34.91 Encounter for supervision of normal pregnancy, unspecified, first trimester (principal); Z3A.09 9 weeks gestation of pregnancy; Z20.2 Contact with and (suspected) exposure to infections with a predominantly sexual mode of transmission
CPT/HCPCS: 0353U; 87480; 87510; 87660; 99212

== ENCOUNTER 2023-05-11 14:23 | Outpatient (AMB) | payer OTHER, SELFPAY ==
[2023-05-11 14:29] VITALS: BP 122/60; BMI 28.6
--- NOTE | 2023-05-11 14:29 | A.OFFVISPN_ITS ---
Intake Vital Signs 05/11/23 14:29 Height 5 ft 11 in Weight 205 lb BMI 28.6 BP 122/60 Intake Visit Reasons: NISHI Bottle Tester Required: No Accompanied by: Significant Other Allergies No Known Allergies Allergy (Verified 05/11/23 14:29) Is last menstrual period known: Yes Last menstrual period: 01/12/23 Post menopausal: No Patient : Yes PFSH Medical History (Updated 05/11/23 @ 15:13 by Tatyana Ann CNM) PRETTY I (cervical intraepithelial neoplasia I) ASCUS with positive high risk HPV cervical Surgical History History of surgery on arm Family History Father High cholesterol Hypertension Mother Alive and well Maternal Grandmother Cancer Sister Cancer Paternal Grandmother Breast cancer Sister Breast cancer Social History Alcohol intake: current Alcohol intake frequency: holidays/special occasions only Sexual orientation: Straight/Heterosexual Gender identity: Female Female Reproductive History Menstrual Age of Menarche: 12 Duration of menses: 6-7 days Date of last menstrual period: 01/12/23 control method: none Total pregnancies: 1 Date of last pap smear: 04/23/22 (negative) History History 1 Elective abortions 0 Para 0 Spontaneous abortions 0 Hx # Term Pregnancies 0 Ectopic pregnancies 0 Hx # Pregnancies 0 Multiple births 0 Questionnaire History History : 1 Visit ROBB Calculator Estimated Delivery Date Method Current WG Current Estimate 11/11/23 Ultrasound #1 13w 5d Other Estimates 10/19/23 LMP (Uncertain) 17w 0d 11/11/23 Ultrasound #2 13w 5d Expected Delivery Route/Plan Vaginal Specific Issues/Plans HX ovarian cyst. OB Problem List: 27yr. old ? ? G1 ?P0 ? ? ?LMP: EDC: 11/11/23 ?by 03/23/23 u/s, (06/22)? ? ?Blood type: O pos Problem List: 1. hx of ascus ,HPV pos 2017, PRETTY 1 2019, Testing: Panorama/and or First Tri screen: will be getting week of 04/27/23.... LOW risk NT scan: normal AFP: FAS: Glucose: early- n/a ? 28 wk glucose: ? CBC 1st Tri: 14.9/41.8/279? 28 wk. CBC: GBS: Vaccinations: Flu: Covid: Tdap: Education/Services WIC: CBE: Breast feeding classes: Social Supports/Stressors: Living situation: Supports: Work/school: Works 3-4, 12 hour shifts per week at [employer] Transportation: Labor, and Concerns: Labor support: ? Sister & FOB? &Plan: Feeding Plans: Plans to nurse saw her sister nurse for year. control: OB Visit Log Initial Weight: 175 lb Date -?-?-?-?-?-?-?-?-?-?-?-?- EGA Weight Gest Week Fundal Ht Present FHR move Efface % Edema BP PrePreg We Weight GTT -?-?-?-?-?-?-?-?-?-?-?-?- Glucose LV Protein Blood Type 04/08/23 -?-?-?-?-?-?-?-?-?-?-?-?- 9w 0d 200 lb 8 oz (+25 lb 8 oz) 200 lb 8 oz -?-?-?-?-?-?-?-?-?-?-?-?- 04/13/23 -?-?-?-?-?-?-?-?-?-?-?-?- 9w 5d 200 lb (+25 lb) 9 160 114/58 200 lb -?-?-?-?-?-?-?-?-?-?-?-?- 05/11/23 -?-?-?-?-?-?-?-?-?-?-?-?- 13w 5d 205 lb (+30 lb) 13 150 122/60 205 l b -?-?-?-?-?-?-?-?-?-?-?-?- Notes Visit Date: 05/11/23 Last Updated by: Tatyana Ann CNM Patient is here with the father the baby for her visit at [facility]. She is now 13 weeks and 5 days she would the nuchal translucency ultrasound she had the 1st trimester screening labs and she also had her initial lab work done. I reviewed the all of these results with her. She feels she is eating well she has been looking things up and had some questions but everything seems to be going well she is still planning to continue with care here at the moment. I reviewed next steps in terms of options for screening for issues including the option of MS AF P around a month from now and what it screens for and the anatomy scan ultrasound which will be done in about 6-7 weeks at [facility] I placed the order for that and explained the AFP to her in detail but she is undecided so I left it that she will call us if she decides she wants to get it done and it can be ordered then in about a month. Reviewed the timing for that. Reviewed that this next ultrasound will be her last unless she goes overdue or develop some other issue. Visit Date: 04/13/23 Last Updated by: Tatyana Ann CNM Patient is here for her 1st visit at 9 weeks and 5 days at the [facility] office. She is accompanied by her sister Catina who is 5 years older than her. She said she was delivered by this CNM 12 years ago and Lay was present at that as well.. She has some questions about what is normal in the 1st trimester and has had met most of them addressed with the RN visit with a wheeze. She works at [employer] on a scheduled day shift. It was not a planned but she is happy and is involved with the father the baby and things are good she had some nausea and breast tenderness but is eating well she is not constipated but she does get gassy and burps a lot. She has had an ultrasound that confirmed her dating. She is planning on her sister breastfed for a year so she has a good coached available to her. She lives in [place] works in [place]. She already knows that she will be delivering at [facility]. She already has spoken with the nurse and knows that her insurance will not cover 1 particular test done at [facility] so she is going to have the NIPT done at [facility] and the form is available to be signed today. And I have signed it and given it to her it is to be drawn on the week of the and that is the day that she has her nuchal translucency ultrasound at [facility]. I did review her with her the options for care and delivery in the [place] including care with us and delivery at [facility] or if she chose to meet the team involved with her delivery she would need to actually transfer care to that practice. Her sister is recommending [facility] so they will discuss and decide amongst themselves. In the meantime we will continue to see her discussed food safety and normal changes in the she was size equals dates for somebody who is 5 ft 11 in and FHT was very clearly audible today. Her nipples julienne well and I discussed early latch and placement of the baby for anticipation. Discussed that we will see her every 4 weeks for now and future screening will be done as well for diabetes and anemia later on. Additionally discussed moderation in weight gain and eating healthy but not obsessing about it discussed that we watch for signs and symptoms of preeclampsia and other challenges in , and discussed reasons to call.. RTC 4 weeks. Visit Date: 04/08/23 Last Updated by: Rebecca Le LPN Anna is here today accompanied by her mother, for her OB nurse intake.. LMP 01/12/23 ROBB=10/21/23. ROBB by u/s on 03/23/23 =11/11/23. Pt is happy about the ,and FOB is involved. Discussed healthy food choices, more frequent smaller amounts of food, keep well hydrated with H2O. Pt is experiencing occasional nausea and vomiting. Advised to try to take her PNV at night, which may help with her nausea. 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 Discussed with pt NT u/s and will schedule at [facility] [place]. Pt aware she will be delivering at [facility] [place], and in the event she becomes high risk she would be transferred. Pt was informed we will get her scheduled for her OB Physical . labs discussed and pt sent to lab after visit. Discussed medications that are acceptable in , and given packet with information for her and her Partner to review. Discussed with Anna how to reach communications administrator MD after hours, and to go to [facility], for any ob emergency. Pt advised to call office for any questions or concerns. Coding Level of Care Code [place] Diagnoses Supervision of normal in second trimester Z34.92 PRETTY I (cervical intraepithelial neoplasia I) N87.0 Assessment & Plan Assessment & Plan (1) Supervision of normal in second trimester: Code(s): Z34.92 - Encounter for supervision of normal , unspecified, second trimester Category: Medical (2) PRETTY I (cervical intraepithelial neoplasia I): Comment: since 2018 2019 neg cotest 2022 negative Pap Code(s): N87.0 - Mild cervical dysplasia Category: Medical Orders: Orders US OB /maternal detail 7 Weeks N87.0 - Mild cervical dysplasia, Z34.92 - Encounter for supervision of normal , unspecified, second trimester
== END 2023-05-12 11:32 | disposition home or self-care (01) ==
LOC: HO.HWSM 14:23
PROVIDERS: PCP Internal Medicine; Visit Provider Advanced Practice Midwife
DX: Z34.92 Encounter for supervision of normal pregnancy, unspecified, second trimester (principal); N87.0 Mild cervical dysplasia
CPT/HCPCS: 25942

== ENCOUNTER → 2023-05-11 14:23 | Outpatient (BNVA) | payer OTHER, SELFPAY | PROVIDERS: PCP Internal Medicine; Visit Provider Advanced Practice Midwife | DX: O99.891 Other specified diseases and conditions complicating pregnancy (principal); N87.0 Mild cervical dysplasia; Z3A.13 13 weeks gestation of pregnancy | CPT/HCPCS: 99212 ==

== ENCOUNTER 2023-06-08 14:11 | Outpatient (AMB) | payer OTHER, SELFPAY ==
[2023-06-08 14:11] VITALS: BP 116/58; BMI 29.4
--- NOTE | 2023-06-08 14:11 | MHC.OFFVISPN ---
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 Accompanied by: Significant Other Allergies No Known Allergies Allergy (Verified 06/08/23 14:17) Medication List - Last Reconciled 06/08/23 by Tatyana Ann CNM [id number] 3-fat com #1 27-1-300 mg caps PO Is last menstrual period known: Yes Last menstrual period: 01/12/23 Post menopausal: No Patient : Yes PFSH Medical History PRETTY I (cervical intraepithelial neoplasia I) ASCUS with positive high risk HPV cervical Surgical History History of surgery on arm Family History Father High cholesterol Hypertension Mother Alive and well Maternal Grandmother Cancer Sister Cancer Paternal Grandmother Breast cancer Sister Breast cancer Social History Alcohol intake: current Alcohol intake frequency: holidays/special occasions only Patient : Yes Sexual orientation: Straight/Heterosexual Gender identity: Female Female Reproductive History Menstrual Age of Menarche: 12 Date of last menstrual period: 01/12/23 control method: none Total pregnancies: 1 Date of last pap smear: 04/23/22 (negative) History of abnormal pap smear: Yes (2019 +HPV, 2015 ASCUS) History History 1 Elective abortions 0 Para 0 Spontaneous abortions 0 Hx # Term Pregnancies 0 Ectopic pregnancies 0 Hx # Pregnancies 0 Multiple births 0 Questionnaire History History : 1 Visit ROBB Calculator Estimated Delivery Date Method Current WG Current Estimate 11/11/23 Ultrasound #1 17w 5d Other Estimates 10/19/23 LMP (Uncertain) 21w 0d 11/11/23 Ultrasound #2 17w 5d Expected Delivery Route/Plan Vaginal Specific Issues/Plans HX ovarian cyst. OB Problem List: 27yr. old ? ? G1 ?P0 ? ? ?LMP: EDC: 11/11/23 ?by 03/23/23 u/s, (6 06/22)? ? ?Blood type: O pos Problem List: 1. hx of ascus ,HPV pos 2018, PRETTY 1 2018, Testing: Panorama/and or First Tri screen: will be getting week of 04/27/23.... LOW risk NT scan: normal AFP: FAS: Glucose: early- n/a ? 28 wk glucose: ? CBC 1st Tri: 14.9/41.8/279? 28 wk. CBC: GBS: Vaccinations: Flu: Covid: Tdap: Education/Services WIC: CBE: Breast feeding classes: Social Supports/Stressors: Living situation: Supports: Work/school: Works 3-4, 12 hour shifts per week at [employer] Transportation: Labor, and Concerns: Labor support: ? Sister & FOB? &Plan: Feeding Plans: Plans to nurse saw her sister nurse for year. control: OB Visit Log Initial Weight: 175 lb Date <del>?</del> EGA Weight Gest Week Fundal Ht Present FHR move Efface % Edema BP PrePreg We Weight GTT <del>?</del> Glucose LV Protein Blood Type 04/08/23 <del>?</del> 9w 0d 200 lb 8 oz (+25 lb 8 oz) 200 lb 8 oz <del>?</del> 04/13/23 <del>?</del> 9w 5d 200 lb (+25 lb) 9 160 114/58 200 lb <del>?</del> 05/11/23 <del>?</del> 13w 6d 205 lb (+30 lb) 13 150 122/60 205 lb <del>?</del> 04/22/24 <del>?</del> 17w 5d 211 lb (+36 lb) 17 150 116/58 211 lb <del>?</del> Notes Visit Date: 06/08/23 Last Updated by: Tatyana nAn CNM Seventeen weeks and 5 days. She is doing well in the she does thinks she is gaining a fair amount of weight she is eating lots of fruits and feeling like she has eating a lot but she loves everything she is eating. We discussed ways to moderate and maybe increase activity to avoid excessive weight gain in the and the challenges of losing it afterwards as well. Every now and then she feels a little flutter but she has not sure if it is movement or gas. She has her anatomy scan ultrasound coming up on the 7th she had her normal nuchal translucency ultrasound and she got the NIPT test and it was negative or low risk and they are having a boy and she has thought about the AFP testing and has decided against it. We will see her again in 4 weeks. Visit Date: 05/11/23 Last Updated by: Tatyana Ann CNM Patient is here with the father the baby for her visit at [facility]. She is now 13 weeks and 5 days she would the nuchal translucency ultrasound she had the 1st trimester screening labs and she also had her initial lab work done. I reviewed the all of these results with her. She feels she is eating well she has been looking things up and had some questions but everything seems to be going well she is still planning to continue with care here at the moment. I reviewed next steps in terms of options for screening for issues including the option of MS MA around a month from now and what it screens for and the anatomy scan ultrasound which will be done in about 6-7 weeks at [facility] I placed the order for that and explained the AFP to her in detail but she is undecided so I left it that she will call us if she decides she wants to get it done and it can be ordered then in about a month. Reviewed the timing for that. Reviewed that this next ultrasound will be her last unless she goes overdue or develop some other issue. Visit Date: 04/13/23 Last Updated by: Tatyana Ann CNM Patient is here for her 1st visit at 9 weeks and 5 days at the [facility]. She is accompanied by her sister Catina who is 5 years older than her. She said she was delivered by this CNM 12 years ago and Lay was present at that as well.. She has some questions about what is normal in the 1st trimester and has had met most of them addressed with the RN visit with a wheeze. She works at [employer] on a scheduled day shift. It was not a planned but she is happy and is involved with the father the baby and things are good she had some nausea and breast tenderness but is eating well she is not constipated but she does get gassy and burps a lot. She has had an ultrasound that confirmed her dating. She is planning on her sister breastfed for a year so she has a good coached available to her. She lives in [place] works in [place]. She already knows that she will be delivering at [facility]. She already has spoken with the nurse and knows that her insurance will not cover 1 particular test done at [facility] so she is going to have the NIPT done at [facility] and the form is available to be signed today. And I have signed it and given it to her it is to be drawn on the week of the and that is the day that she has her nuchal translucency ultrasound at [facility]. I did review her with her the options for care and delivery in the [place] including care with us and delivery at [facility] or if she chose to meet the team involved with her delivery she would need to actually transfer care to that practice. Her sister is recommending [facility] so they will discuss and decide amongst themselves. In the meantime we will continue to see her discussed food safety and normal changes in the she was size equals dates for somebody who is 5 ft 11 in and FHT was very clearly audible today. Her nipples julienne well and I discussed early latch and placement of the baby for anticipation. Discussed that we will see her every 4 weeks for now and future screening will be done as well for diabetes and anemia later on. Additionally discussed moderation in weight gain and eating healthy but not obsessing about it discussed that we watch for signs and symptoms of preeclampsia and other challenges in , and discussed reasons to call.. RTC 4 weeks. Visit Date: 04/08/23 Last Updated by: Rebecca Le LPN Anna is here today accompanied by her mother, for her OB nurse intake.. LMP 01/12/23 ROBB=10/21/23. ROBB by u/s on 03/23/23 =11/11/23. Pt is happy about the ,and FOB is involved. Discussed healthy food choices, more frequent smaller amounts of food, keep well hydrated with H2O. Pt is experiencing occasional nausea and vomiting. Advised to try to take her PNV at night, which may help with her nausea. 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 Discussed with pt NT u/s and will schedule [place] [facility] [place] Pt aware she will be [place] [facility] [place] and in the event she becomes high risk she would be transferred. Pt was informed we will get her scheduled for her OB Physical . labs discussed and pt sent to lab after visit. Discussed medications that are acceptable in , and given packet with information for her and her Partner to review. Discussed with Anna how to reach member of congress MD after hours, and to go to [facility], for any ob emergency. Pt advised to call office for any questions or concerns. Coding Level of Care Code [place] Diagnoses Supervision of normal in second trimester Z34.92 Assessment & Plan Assessment & Plan (1) Supervision of normal in second trimester: Code(s): Z34.92 - Encounter for supervision of normal , unspecified, second trimester Category: Medical
== END 2023-06-09 08:03 | disposition home or self-care (01) ==
PROVIDERS: PCP Internal Medicine; Visit Provider Advanced Practice Midwife
DX: Z34.92 Encounter for supervision of normal pregnancy, unspecified, second trimester (principal)
CPT/HCPCS: 59425

== ENCOUNTER → 2023-06-08 14:17 | Outpatient (BNVA) | payer OTHER, SELFPAY | PROVIDERS: PCP Internal Medicine; Visit Provider Advanced Practice Midwife ==